=== PATIENT | male | born 1930 | race Caucasian/White ===

== ENCOUNTER 2017-04-22 14:51 | Inpatient (IN) | payer OTHER ==
[~2017-04-22] VITALS: Ht 182.9 cm; Wt 122.9 kg
[~2017-04-22 14:51] MED LIST: METOPROLOL SUCC50 M1 PO; METOPROLOL SUCC50 M2 PO; PRINIVIL 5MG5 MG PO; TERAZOSIN5 MG PO; TOPROL XL 25MG25 MG PO
--- NOTE | 2017-04-22 15:06 | ED GENERAL ADULT ---
History of Present Illness General Chief Complaint: General Adult Stated Complaint: UNRESPONSIVE ? GI BLEED Source: family, old records, EMS Exam Limitations: dementia Vital Signs & Intake/Output Vital Signs & Intake/Output Vital Signs Date Time Temp Pulse Resp B/P B/P Pulse O2 O2 Flow FiO2 Mean Ox Delivery Rate 04/22 1802 100 18 138/85 93 Room Air 04/22 1502 107 16 157/75 95 Room Air Room Air Allergies Coded Allergies: NO KNOWN ALLERGIES (10/21/14) Reconcile Medications Aspirin (Ecotrin*) 81 MG TABLET.DR 1 TAB PO DAILY HEART/BLOOD (Reported) Cyanocobalamin (Vitamin B-12) (Unknown Strength) TABLET (Unknown Dose) PO DAILY SUPPLEMENT (Reported) Folic Acid (Unknown Strength) CAPSULE (Unknown Dose) PO DAILY SUPPLEMENT ( Reported) Lisinopril (Prinivil) (Unknown Strength) TABLET (Unknown Dose) PO DAILY BP ( Reported) Metoprolol Succinate (Unknown Strength) TAB.ER.24H (Unknown Dose) PO DAILY HEART/BP (Reported) Nystatin (Nyamyc) (Unknown Strength) POWDER (Unknown Dose) TOP AD GROIN ( Reported) [RX CREAM] 1 ELISHA TOP DAILY AFTER SHOWER - GROIN (Reported) Tamsulosin HCl (Flomax) 0.4 MG CAP.ER.24H 1 CAP PO DAILY PROSTATE (Reported) Triage Note: BIBA FROM HOME - FOUND ON KITCHEN FLOOR IN PRONE POSITION BY FAMILY. "COFFEE GROUND EMESIS" NOTED UPON ARRIVAL. PALENESS NOTED. MULTIPLE EPISODES OF EMEIS SINCE EMS ARRIVAL. HISTORY OF MELANOMA, PROSTATE CANCER, HTN, Triage Nurses Notes Reviewed? yes HPI: Patient lives at home alone however family lives in the apartment upstairs. Patient was last seen normal at 9:00 this morning. On the check on the patient again he was prone on the kitchen floor. Patient does have a history of frequent falls and then will crawl to an object that he can pull himself up from. Family states that he is more confused than normal since being found on the floor. There appeared to be coffee ground emesis around his head. Patient is unable to provide any history. Past History Travel History Traveled to [place] past 21 day No Medical History Any Pertinent Medical History? 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 No Review of Systems Review of Systems Constitutional: Reports: see HPI. Physical Exam Physical Exam General Appearance: well developed/nourished, awake, moderate distress Head: ecchymosis Eyes: Bilateral: PERRL. Ears, Nose, Throat: normal pharynx, normal ENT inspection, hearing grossly normal Neck: normal inspection, supple Respiratory: normal breath sounds, chest non-tender, no respiratory distress, lungs clear Cardiovascular: regular rate/rhythm, normal peripheral pulses Gastrointestinal: normal bowel sounds, soft, non-tender Rectal: BROWN STOOL, HEME NEGATIVE Back: normal inspection Extremities: ECCHYMOSIS TO BOTH ELBOWS AND KNEES Neurologic/Psych: awake, disoriented x 3 Skin: intact Core Measures ACS in differential dx? Yes CVA/TIA Diagnosis: No Sepsis Present: No Sepsis Focused Exam Completed? No Progress Differential Diagnoses I considered the following diagnoses in my evaluation of the patient: [Traumatic injury, GI bleed, electrolyte abnormality, pneumonia, UTI, rhabdo] Plan of Care: Orders Procedure Date/time Status Add-on Test (ER Only) 04/22 1754 Active BLOOD CULTURE 04/22 1754 Active EKG 04/22 1530 Active LACTIC ACID 04/22 1520 Complete URINALYSIS 04/22 1503 Complete TROPONIN LEVEL 04/22 1503 Complete PARTIAL THROMBOPLASTIN TIME 04/22 1503 Complete PROTHROMBIN TIME 04/22 1503 Complete COMPREHENSIVE METABOLIC PANEL 04/22 1503 Complete CREATINE PHOSPHOKINASE 04/22 1503 Complete CBC WITHOUT DIFFERENTIAL 04/22 1503 Complete Laboratory Tests 04/22/17 1547: Urinalysis LIGHT H, Urine Color YEL, Urine Clarity CLEAR, Urine pH 5.5, Ur Specific [place] >= 1.030, Urine Protein 100 H, Urine Ketones 15 H, Urine Nitrite NEG, Urine Bilirubin NEG, Urine Urobilinogen 0.2, Ur Leukocyte Esterase NEG, Ur Microscopic SEDIMENT EXAMINED, Urine RBC 1-3, Urine WBC 1-3 H, Ur Epithelial Cells FEW, Urine Bacteria FEW H, Hyaline Casts FEW H, Urine Mucus FEW, Urine Hemoglobin MOD H, Urine Glucose NEG 04/22/17 1520: Anion Gap 17 H, Estimated GFR > 60, BUN/Creatinine Ratio 35.0 H, Glucose 144 H, Lactic Acid 4.2 H, Calcium 9.9, Total Bilirubin 2.8 H, AST 40, ALT 45, Alkaline Phosphatase 120, Creatine Kinase 893 H, Troponin I 0.03, Total Protein 6.7, Albumin 4.3, Globulin 2.4, Albumin/Globulin Ratio 1.8, PT 13.6 H, INR 1.24 H, APTT 39 H, CBC w Diff NO MAN DIFF REQ, RBC , MCV ND, MCH ND, MCHC ND, RDW 13.7, MPV 7.6, Gran % 91.8 H, Lymphocytes % 2.0 L, Monocytes % 6.2, Eosinophils % 0, Basophils % 0, Absolute Granulocytes 19.5 H, Absolute Lymphocytes 0.4 L, Absolute Monocytes 1.3 H, Absolute Eosinophils 0, Absolute Basophils 0 Microbiology 04/22 1848 BLOOD: Blood Culture - RECD 04/22 1753 BLOOD: Blood Culture - ORD Diagnostic Imaging: Viewed by Me: CT Scan. Discussed w/RAD: CT Scan. Radiology Impression: PATIENT: CASS GUPTA PRESENT AGE: 87 PATIENT ACCOUNT NO: [id number] : [birth year] LOCATION: [facility] ORDERING PHYSICIAN: Dayron Nunes MD SERVICE DATE: 04/22/17 EXAM TYPE: CAT - CT CERV SPINE WO IV CONTRAST; CT HEAD WO IV CONTRAST EXAMINATION: CT OF THE HEAD WITHOUT CONTRAST CT OF THE CERVICAL SPINE WITHOUT CONTRAST CLINICAL INFORMATION: Found unresponsive. Presumptive diagnosis of intracranial hemorrhage.. COMPARISON: None. TECHNIQUE: Contiguous axial imaging was performed from the skullbase to vertex without intravenous administration of contrast. Coronal reformations of the head were obtained. Contiguous axial imaging was then performed from the skull base down to the thoracic inlet. Coronal and sagittal reformations of the cervical spine were obtained. DLP: 1004.75 mGy-cm. FINDINGS: CT scan of the head: Beam hardening artifact from dental amalgam and bony calvarium limits assessment. There is no evidence of acute intracranial hemorrhage or territorial infarction. No abnormal mass-effect or midline shift is seen. [place] to white matter differentiation is well preserved. No extra-axial fluid collections are identified. The ventricles and sulci are mildly enlarged, consistent with involutional changes. Prominent periventricular deep white matter low-attenuation is seen, consistent with ischemic small vessel disease. Calcification of the carotid siphons is seen. Prominent calcification of the cerebral falx is seen. The osseous structures and soft tissues are normal. Mucous retention cyst is seen in the left maxillary and sphenoid sinus. The mastoid air cells and visualized portions of the paranasal sinuses are well- aerated. CT scan of the cervical spine: There is a mild convex right curvature of the cervical spine. No evidence of acute fracture or dislocation. Craniocervical junction and atlantoaxial articulations are intact. Soft tissues at the level of the foramen magnum are grossly unremarkable. Prevertebral soft tissues are normal in thickness. There is advanced degenerative disc disease at the C3-C4, C4-C5, C5-C6 and C6-C7 levels with associated bulky spur formation, most prominent at the C4-C5 level. Partial fusion along the anterior cervical column is noted from the C5 level down to the upper thoracic spine. Small posterior disc osteophyte complexes are seen at all levels from C3-C4 down to the thoracic spine. Degenerative changes are seen at the atlantoaxial articulation. The included soft tissues of the neck and lung apices are unremarkable. Small calcifications in the thyroid gland are noted. IMPRESSION: CT scan of the head: No acute intracranial pathology. Mild involutional changes and prominent periventricular deep white matter microangiopathic changes seen. Mucous retention cyst in the left maxillary sinus and in the left sphenoid sinus is seen. CT scan of the cervical spine: No evidence of cervical spine fracture. Cervical dextroscoliosis with multilevel advanced degenerative disc disease throughout the mid and lower cervical spine. DICTATED BY: Juanita Ring MD DATE/TIME DICTATED:04/22/171530 LIST OF FIRST JOB IDEAS:[place] DATE/TIME TRANSCRIBED:04/22/171530 CONFIDENTIAL, DO NOT COPY WITHOUT APPROPRIATE AUTHORIZATION. <Electronically signed in Other Vendor System> SIGNED BY: Juanita Ring MD 04/22/17 1551, PATIENT: CASS GUPTA PRESENT AGE: 87 PATIENT ACCOUNT NO: [id number] : [birth year] LOCATION: [facility] ORDERING PHYSICIAN: Dayron Nunes MD SERVICE DATE: 04/22/17 EXAM TYPE: CAT - CT ABD & PELVIS W IV CONTRAST; CT CHEST W IV CONTRAST EXAMINATION CT CHEST, ABDOMEN, AND PELVIS WITH IV CONTRAST CLINICAL INFORMATION: Trauma. COMPARISON: Chest x-ray 07/14/2015. TECHNIQUE: A contrast-enhanced CT of the chest was obtained following the administration of 95 mL of Optiray [address] CHEST: There is no focal consolidation, pleural effusion, or pneumothorax. The thoracic aorta is normal in caliber. The heart is normal in size without evidence of a pericardial effusion. There is no mediastinal, hilar, or axillary adenopathy. Multinodular thyroid gland with coarse calcifications. Nonspecific esophageal wall thickening that can be correlated with endoscopy. No significant soft tissue findings within the chest. 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 CT ABDOMEN/PELVIS: The spleen, adrenal glands, and pancreas are normal. The gallbladder is surgically absent. Probable small cyst within the left lobe of the liver. There are parapelvic cysts bilaterally without hydronephrosis. There is a 5 mm calculus within the upper pole of the right kidney. There is a 4 cm mixed fat and soft tissue-containing lesion along the anterior margin of the right kidney that may reflect an angiomyolipoma or a treated renal lesion for which correlation with the patient's surgical history is advised. Indeterminate 1.4 cm hypodense lesion within the posterior interpolar left kidney can be further assessed with ultrasound. Scattered colonic diverticulosis without acute diverticulitis. The large and small bowel are normal in caliber without evidence of mechanical obstruction. No focal inflammatory changes adjacent to the large or the small bowel. The appendix is normal. There is no free air and there is no intra-abdominal free fluid. No mesenteric or retroperitoneal adenopathy. Aortoiliac atherosclerotic calcification. Prostatomegaly. No pelvic adenopathy. No free fluid within the pelvis. 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 Laminectomy changes at the L3-L5 levels. There is a right total hip arthroplasty. No significant soft tissue abnormality. IMPRESSION: - No evidence of hollow or solid visceral injury within the chest, abdomen, or pelvis. -Nondisplaced lucency courses through the left fifth anterior costochondral cartilage in the right seventh anterior costochondral cartilage suggesting age-indeterminate nondisplaced fracture through these areas. No displaced rib fractures. No additional fractures. 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 - Nonspecific esophageal wall thickening that can be correlated with endoscopy. - There is a 4 cm mixed fat and soft tissue-containing lesion along the anterior margin of the right kidney that may reflect an angiomyolipoma or treated renal malignancy which can be correlated with the clinical history. - Indeterminate 1.4 cm hypodense lesion within the posterior interpolar left kidney can be further assessed with ultrasound. - Multinodular thyroid gland with coarse calcifications. - Prostatomegaly. - Nonobstructing right upper pole renal calculus. DICTATED BY: Norris Collins MD DATE/TIME DICTATED:04/22/171848 LIST OF FIRST JOB IDEAS:[place] DATE/TIME TRANSCRIBED:04/22/171848 CONFIDENTIAL, DO NOT COPY WITHOUT APPROPRIATE AUTHORIZATION. <Electronically signed in Other Vendor System> SIGNED BY: Norris Collins MD 04/22/171910 Initial ED EKG: SINUS ARRYTHMIA, NSSTT CHANGES, NO CHANGE FROM PRIOR Prior EKG: unchanged Rhythm Strip: SINUS ARRYTHMIA Departure Departure Disposition: STILL A PATIENT Condition: Guarded Clinical Impression Primary Impression: Leukocytosis Secondary Impressions: Lactic acidosis, Rhabdomyolysis, Syncope Referrals: Ngoc Nelson APRN (PCP) Departure Forms: Customer Survey General Discharge Information Admission Note Spoke With: Abhijit Craft MD Documentation of Exam: Documentation of any treatments & extenuating circumstances including Concerns Regarding Discharge (functional status, medication knowledge or non-compliance, living conditions, etc.) that warrant an admission rather than observation: [ TELE ADMISSION FOR SERIAL ENZYMES,IV FLUIDS,CARDIOLOGY EVALUATION, ONCOLOGY EVALUATION] Critical Care Note Critical Care Note Critical Care Time: non-applicable
[2017-04-22 15:28] LABS: ABSOLUTE BASOPHIL COUNT 0 /CUMM (0.0-0.2); ABSOLUTE EOSINOPHIL COUNT 0 /CUMM (0.0-0.7); ABSOLUTE GRANULOCYTE CT 19.5 /CUMM (1.4-6.5); ABSOLUTE LYMPH COUNT 0.4 /CUMM (1.2-3.4); ABSOLUTE MONOCYTE COUNT 1.3 /CUMM (0.10-0.60); BASOPHIL % 0 % (0.0-2.0); EOSINOPHIL % 0 % (0-5); MEAN PLATELET VOLUME 7.6 FL (7.4-10.4); PLATELET COUNT 227 /CUMM (130-400); RBC DISTRIBUTION WIDTH 13.7 % (11.5-14.5)
[2017-04-22 15:37] LABS: PT 13.6 SEC (9.4-12.5); PTT 39 SEC (25-37)
--- NOTE | 2017-04-22 15:51 | CT SCAN REPORT ---
EXAMINATION: CT OF THE HEAD WITHOUT CONTRAST CT OF THE CERVICAL SPINE WITHOUT CONTRAST CLINICAL INFORMATION: Found unresponsive. Presumptive diagnosis of intracranial hemorrhage.. COMPARISON: None. TECHNIQUE: Contiguous axial imaging was performed from the skullbase to vertex without intravenous administration of contrast. Coronal reformations of the head were obtained. Contiguous axial imaging was then performed from the skull base down to the thoracic inlet. Coronal and sagittal reformations of the cervical spine were obtained. DLP: 1004.75 mGy-cm. FINDINGS: CT scan of the head: Beam hardening artifact from dental amalgam and bony calvarium limits assessment. There is no evidence of acute intracranial hemorrhage or territorial infarction. No abnormal mass-effect or midline shift is seen. [place] to white matter differentiation is well preserved. No extra-axial fluid collections are identified. The ventricles and sulci are mildly enlarged, consistent with involutional changes. Prominent periventricular deep white matter low-attenuation is seen, consistent with ischemic small vessel disease. Calcification of the carotid siphons is seen. Prominent calcification of the cerebral falx is seen. The osseous structures and soft tissues are normal. Mucous retention cyst is seen in the left maxillary and sphenoid sinus. The mastoid air cells and visualized portions of the paranasal sinuses are well-aerated. CT scan of the cervical spine: There is a mild convex right curvature of the cervical spine. No evidence of acute fracture or dislocation. Craniocervical junction and atlantoaxial articulations are intact. Soft tissues at the level of the foramen magnum are grossly unremarkable. Prevertebral soft tissues are normal in thickness. There is advanced degenerative disc disease at the C3-C4, C4-C5, C5-C6 and C6-C7 levels with associated bulky spur formation, most prominent at the C4-C5 level. Partial fusion along the anterior cervical column is noted from the C5 level down to the upper thoracic spine. Small posterior disc osteophyte complexes are seen at all levels from C3-C4 down to the thoracic spine. Degenerative changes are seen at the atlantoaxial articulation. The included soft tissues of the neck and lung apices are unremarkable. Small calcifications in the thyroid gland are noted. IMPRESSION: CT scan of the head: No acute intracranial pathology. Mild involutional changes and prominent periventricular deep white matter microangiopathic changes seen. Mucous retention cyst in the left maxillary sinus and in the left sphenoid sinus is seen. CT scan of the cervical spine: No evidence of cervical spine fracture. Cervical dextroscoliosis with multilevel advanced degenerative disc disease throughout the mid and lower cervical spine.
[2017-04-22] MEDS ORDERED: FLOMAX0.4 M1 PO (16:05)
[2017-04-22] MEDS ORDERED: PRINIVIL5 M1 PO (16:05)
[2017-04-22] MEDS ORDERED: FOLIC ACID0.8 M1 PO (16:05)
[2017-04-22] MEDS ORDERED: VITAMIN B-121000 MC3 PO (16:06)
[2017-04-22] MEDS ORDERED: NYAMYC15 GM TOP (16:06)
[2017-04-22] MEDS ORDERED: RX CREAM TOP (16:07)
[2017-04-22 16:24] LABS: MEAN CORPUSCULAR HGB ND PG (27.0-31.0); MEAN CORPUSCULAR HGB CONC ND G/DL (33.0-37.0); MEAN CORPUSCULAR VOLUME ND FL (80.0-94.0)
[2017-04-22 16:26] LABS: HEMATOCRIT 40 % (42-52); WHITE BLOOD CELL COUNT 21.3 /CUMM (4.8-10.8)
[2017-04-22 16:28] LABS: GRANULOCYTE % 91.8 % (42.2-75.2)
--- NOTE | 2017-04-22 19:11 | CT SCAN REPORT ---
EXAMINATION CT CHEST, ABDOMEN, AND PELVIS WITH IV CONTRAST CLINICAL INFORMATION: Trauma. COMPARISON: Chest x-ray 07/14/2015. TECHNIQUE: A contrast-enhanced CT of the chest was obtained following the administration of 95 mL of Optiray [address] CHEST: There is no focal consolidation, pleural effusion, or pneumothorax. The thoracic aorta is normal in caliber. The heart is normal in size without evidence of a pericardial effusion. There is no mediastinal, hilar, or axillary adenopathy. Multinodular thyroid gland with coarse calcifications. Nonspecific esophageal wall thickening that can be correlated with endoscopy. No significant soft tissue findings within the chest. 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 CT ABDOMEN/PELVIS: The spleen, adrenal glands, and pancreas are normal. The gallbladder is surgically absent. Probable small cyst within the left lobe of the liver. There are parapelvic cysts bilaterally without hydronephrosis. There is a 5 mm calculus within the upper pole of the right kidney. There is a 4 cm mixed fat and soft tissue-containing lesion along the anterior margin of the right kidney that may reflect an angiomyolipoma or a treated renal lesion for which correlation with the patient's surgical history is advised. Indeterminate 1.4 cm hypodense lesion within the posterior interpolar left kidney can be further assessed with ultrasound. Scattered colonic diverticulosis without acute diverticulitis. The large and small bowel are normal in caliber without evidence of mechanical obstruction. No focal inflammatory changes adjacent to the large or the small bowel. The appendix is normal. There is no free air and there is no intra-abdominal free fluid. No mesenteric or retroperitoneal adenopathy. Aortoiliac atherosclerotic calcification. Prostatomegaly. No pelvic adenopathy. No free fluid within the pelvis. 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 Laminectomy changes at the L3-L5 levels. There is a right total hip arthroplasty. No significant soft tissue abnormality. IMPRESSION: - No evidence of hollow or solid visceral injury within the chest, abdomen, or pelvis. -Nondisplaced lucency courses through the left fifth anterior costochondral cartilage in the right seventh anterior costochondral cartilage suggesting age-indeterminate nondisplaced fracture through these areas. No displaced rib fractures. No additional fractures. 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 - Nonspecific esophageal wall thickening that can be correlated with endoscopy. - There is a 4 cm mixed fat and soft tissue-containing lesion along the anterior margin of the right kidney that may reflect an angiomyolipoma or treated renal malignancy which can be correlated with the clinical history. - Indeterminate 1.4 cm hypodense lesion within the posterior interpolar left kidney can be further assessed with ultrasound. - Multinodular thyroid gland with coarse calcifications. - Prostatomegaly. - Nonobstructing right upper pole renal calculus.
--- NOTE | 2017-04-22 20:28 | History & Physical ---
Abhishek BAUTISTA,[facility] 04/22/172027: General Information and HPI MD Statement: I have seen and personally examined CASS GUPTA and documented this H&P. The patient is a 87 year old M who presented with a patient stated chief complaint of [fall, weakness]. Source of Information: patient History of Present Illness: 87 yo M pmhx of alzheimers, htn, melanoma, nonhodkins lymphoma, prostate cancer s/p resection, SBO, cholecystetomy presenting for weakness after a fall. The history is given by the patients grand daughter who lives downstairs from the patient. She states that she saw the patient at 9:00AM in bed an he was fine. She states that she came back at 2:30 in the afternoon and found him on the ground and his room in a mess. She thinks he fell/rolled out of bed and was too weak to get back up. She thinks he tried to pulled himself up on various objects but was too weak causing his room to be a mess. She states the patient was shaking but she thinks its due to muscle exhaustion. She states he has had 4-5 falls in the past and his last fall was 5 months ago. She also states that he was normal yesteday. She also noticed his eyes have been a little more watery. The patient had coffee ground emesis x2 in the emergency department. According to the daughter, the patient denies any changes in appetite, fevers, headaches, chills, [place], vomiting, cp, SOB, abd pain, changes in elimination, seizures, tongue biting or incontinence. Allergies/Medications Allergies: Coded Allergies: NO KNOWN ALLERGIES (10/21/14) Home Med list Aspirin (Ecotrin*) 81 MG TABLET.DR 1 TAB PO DAILY HEART/BLOOD (Reported) Cyanocobalamin (Vitamin B-12) (Unknown Strength) TABLET (Unknown Dose) PO DAILY SUPPLEMENT (Reported) Folic Acid (Unknown Strength) CAPSULE (Unknown Dose) PO DAILY SUPPLEMENT ( Reported) Lisinopril (Prinivil) (Unknown Strength) TABLET (Unknown Dose) PO DAILY BP ( Reported) Metoprolol Succinate (Unknown Strength) TAB.ER.24H (Unknown Dose) PO DAILY HEART/BP (Reported) Nystatin (Nyamyc) (Unknown Strength) POWDER (Unknown Dose) TOP AD GROIN ( Reported) Tamsulosin HCl (Flomax) 0.4 MG CAP.ER.24H 1 CAP PO DAILY PROSTATE (Reported) Past History Travel History Traveled to [place] past 21 day No Medical History Neurological: Alzheimer's disease EENT: NONE Cardiovascular: hypertension Respiratory: NONE Gastrointestinal: NONE Hepatic: NONE Renal: NONE Musculoskeletal: NONE Psychiatric: NONE Endocrine: NONE Blood Disorders: hemolysis Cancer(s): melanoma, non-hodgkin lymphoma, prostate cancer 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 Cardiovascular: Reports: no symptoms. Respiratory: Reports: no symptoms. GI: Reports: see HPI (hematemsis), vomiting. Genitourinary: Reports: no symptoms. Exam & Diagnostic Data Last 24 Hrs of Vital Signs/I&O Vital Signs Date Time Temp Pulse Resp B/P B/P Pulse O2 O2 Flow FiO2 Mean Ox Delivery Rate 04/22 1802 100 18 138/85 93 Room Air 04/22 1502 107 16 157/75 95 Room Air Room Air Intake & Output 04/22 1600 04/22 0800 04/22 0000 Intake Total Output Total Balance Patient 250 lb Weight Weight Estimated Measurement Method Physical Exam General Appearance Alert, Oriented X3 (aox2), Cooperative, No Acute Distress HEENT PERRLA Cardiovascular Regular Rate, Normal S1, Normal S2 Lungs Clear to Auscultation, Normal Air Movement Abdomen Normal Bowel Sounds, Soft, RLQ tenderness Neurological cn 2-12 grossly intact Extremities 2+ radial pulses Last 24 Hrs of Labs/Moncho: Laboratory Tests 04/23/17 1530: Sodium Pending, Potassium Pending, Chloride Pending, Carbon Dioxide Pending, Anion Gap Pending, BUN Pending, Creatinine Pending, BUN/Creatinine Ratio Pending , Creatine Kinase Pending 04/23/17 0810: Lactic Acid 1.0, Creatine Kinase 4403 H, Troponin I 0.08 04/23/17 0800: Troponin I Cancelled 04/23/17 0430: Lactic Acid 1.4 04/23/17 0430: Anion Gap 9, Estimated GFR > 60, BUN/Creatinine Ratio 32.5 H, Creatine Kinase 5133 H, CBC w Diff MAN DIFF ORDERED, RDW 14.3, MPV 8.2, Segmented Neutrophils 79 H, Lymphocytes 18 L, Monocytes 3, Platelet Estimate ADEQUATE, Normochromic RBCs VERIFIED, Anisocytosis 1+, Urinalysis LIGHT H, Urine Color YEL, Urine Clarity CLEAR, Urine pH 5.5, Ur Specific [place] 1.020, Urine Protein 30 H, Urine Ketones 15 H, Urine Nitrite NEG, Urine Bilirubin NEG@ICTO, Urine Urobilinogen 1.0, Ur Leukocyte Esterase NEG, Ur Microscopic SEDIMENT EXAMINED, Urine RBC >75 H, Urine WBC 3-5 H, Ur Epithelial Cells FEW, Urine Bacteria FEW H, Urine Mucus MOD H, Urine Hemoglobin LARGE H, Urine Glucose NEG 04/23/17 0020: Troponin I 0.08 04/23/17 0020: Lactic Acid 2.0 Microbiology 04/23 0430 URINE ROUT: Urine Culture - RECD 04/23 0040 BLOOD: Blood Culture - RES 04/22 1848 BLOOD: Blood Culture - RES Assessment/Plan Assessment: A: 87 yo M pmhx of alzheimers, htn, melanoma, nonhodkins lymphoma, prostate cancer, SBO, cholecystetomy presenting for weakness after a fall but also found to have coffee ground emesis vomiting P: #GI bleed H/H 13.7/.40 INR 1.24 BUN 35 LA 4.2-> 1.4 Trops .03 Chest/abd CT: No evidence of hollow or solid visceral injury within the chest, abdomen, or pelvis. 1.-Nondisplaced lucency courses through the left fifth anterior costochondral cartilage in the right seventh anterior costochondral cartilage suggesting age- indeterminate nondisplaced fracture through these areas. No displaced rib fractures. No additional fractures. 2. 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 3. Nonspecific esophageal wall thickening that can be correlated with endoscopy. 4. There is a 4 cm mixed fat and soft tissue-containing lesion along the anterior margin of the right kidney that may reflect an angiomyolipoma or treated renal malignancy which can be correlated with the clinical history. - Indeterminate 1.4 cm hypodense lesion within the posterior interpolar left kidney can be further assessed with ultrasound. 5. Multinodular thyroid gland with coarse calcifications. 6. Prostatomegaly. 7. Nonobstructing right upper pole renal calculus. CT scan of the head: No acute intracranial pathology. Mild involutional changes and prominent periventricular deep white matter microangiopathic changes seen. Mucous retention cyst in the left maxillary sinus and in the left sphenoid CT scan of the cervical spine: No evidence of cervical spine fracture. Cervical dextroscoliosis with multilevel advanced degenerative disc disease throughout the mid and lower cervical spine. -gi consult -IV protonix -type and screen -monitor h/h -clear liquid diet -trend trops and ekg x3 -monitor cpk #fall of unclear cause WBC 24.3 -f/u cards consult -trend trops and ekg as above -echo -orthostats #rhabdomyolysis CPK 893 -trend cpk, cont fluids #leukocytosis with unclear source of infeciton -aspiration precautions -unasyn for possible aspiration -pham cx #weakness Possibly due to infection vs GI bleed -OT/PT consult -orthostats #hx of hemolytic anemia Tbili 2.8 Direct bili 0.8 -monitor indirect bili for hemolysis #DVT prophylaxis lovenox #DNR DNI As Ranked By This Provider Problem List: 1. Syncope 2. Rhabdomyolysis 3. Leukocytosis 4. GI bleed Core Measures/Misc (10/30) Acute Coronary Syndrome ACS Diagnosis: No Congestive Heart Failure Congestive Heart Failure Diagnosis No Cerebrovascular Accident CVA/TIA Diagnosis: No VTE (View Protocol) VTE Risk Factors Acute Medical Illness No Mechanical VTE Prophylaxis d/t Other No VTE Pharm Prophylaxis d/t NA PharmProphylax ordered Sepsis (View protocol) Sepsis Present: No Lillie Pike 04/22/17 2300: Resident Review Statement Resident Statement: examined this patient, discussed with fall internship, amended to note Other Findings: 87-year-old male with a past medical history of hypertension, Alzheimer's dementia, prostate cancer, non-Hodgkin's lymphoma, hypertension, AIHA in remission since 2006 was brought in with a chief concern of multiple falls and coffee-ground emesis. He was covered in his vomitus around over his face when he was found, and no recollection of syncopal episode. He was last found to last normal the am of admission, and did not have symptoms such as fever, dyspnea, CP or palpitations prior to the episode. Reported abdominal discomfort that began 1 day ago, no diarrhea. Similar episodes in the last few months, requiring hospital admissions. Reported compliance to his medications. Gets most of his medical care at [facility]. At the time of admission-vitals temperature ( was not recorded in the ED for some reason), Blood pressure 157/75, pulse rate 107, pulse ox 95% on room air. Pertinent lab findings: WBC 21.3 with 91% granulocytes, hemoglobin 13.7, hematocrit 40, platelets 227, sodium 145, potassium 3.7, anion gap 17, BUN 35, serum creatinine 1.0. Lactic acid 4.2, total bilirubin 2.8, AST 40, ALT 45, creatinine kinase at 93, troponin I0.03, INR 1.24, urinalysis showed increased protein. On examination- General Exam: AAOx2, No acute distress, Skin: No rashes, no breakdown HEENT: PERRLA, EOMI Neck: Supple, No JVD No cervical lymphadenopathy CVS: Reg Rate, Normal S1,S2, No MGR Resp: Normal air entry, no ronchi/rales Abdomen: Soft, RLQ tenderness, Normal Bowel Sounds Neuro: Normal Speech, Strength 5/5 b/l x 4 extremities, Sensation intact, CN III -XII NL, Reflexes 2+ Extremities: No cyanosis, pedal edema trace CT scan head and cervical spine: CT scan of the head:no acute intracranial pathology. Mild involutional changes and prominent periventricular deep white matter microangiopathic changes seen. Mucous retention cyst in the left maxillary sinus and in the left sphenoid sinus is seen. CT scan of the cervical spine: No evidence of cervical spine fracture. Cervical dextroscoliosis with multilevel advanced degenerative disc disease throughout the mid and lower cervical spine. CT abdomen and pelvis with IV contrast: - No evidence of hollow or solid visceral injury within the chest, abdomen, or pelvis. -Nondisplaced lucency courses through the left fifth anterior costochondral cartilage in the right seventh anterior costochondral cartilage suggesting age-indeterminate nondisplaced fracture through these areas. No displaced rib fractures. No additional fractures. 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 - Nonspecific esophageal wall thickening that can be correlated with endoscopy. - There is a 4 cm mixed fat and soft tissue-containing lesion along the anterior margin of the right kidney that may reflect an angiomyolipoma or treated renal malignancy which can be correlated with the clinical history. - Indeterminate 1.4 cm hypodense lesion within the posterior interpolar left kidney can be further assessed with ultrasound. - Multinodular thyroid gland with coarse calcifications. - Prostatomegaly. - Nonobstructing right upper pole renal calculus. Etiology likely is due to dehydration, GI bleed, possible aspiration pneumonia/ pneumonitis that must have led to his syncopal episode. He has limited BUN/ creatinine ratio and coffee-ground emesis makes his belief that he may have had GI bleed. Did not give any history of recent NSAID use. In regards to aspiration pneumonitis, although CAT scan did not reveal any consolidation, he should be covered with antibiotics and the culture results. Problem list: #1 acute blood loss secondary to GI bleed #2 leukocytosis, source 2+ SIRS2 with unclear source of infection #3 history of non-Hodgkin's lymphoma. 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 Blood cultures, lower respirator cultures, urine culture Check indirect bili, since this patient has history of [place] hemolytic anemia Cardiology consult Echocardiogram Orthostatic vitals Serial EKGs, electrolytes Check Urine protein creatinine ratio, if proteinuria persists. Continue albuterol, ipratropium. Housekeeping: #1 DVT prophylaxis-alps only #2 lines-peripheral #3 code-DNR/DNI #4 medical reconciliation-complete. #5 medical records-please obtain from [place]. LuanaEladiouyen 04/23/17 0530: Attending MD Review Statement Attending Statement Attending MD Statement: examined this patient, discuss w/resident/PA/ONLINE ACTIVIST, agreed w/resident/PA/ONLINE ACTIVIST, reviewed EMR data (avail), reviewed images, amended to note Attending Assessment/Plan: CC: Found on the floor PMH: Dementia, HTN, CA prostate S/P radiation, non-Hodgkin's lymphoma, S/P cholecystectomy, cold agglutinin autoimmune hemolytic anemia History is obtain from patient's granddaughter. Patient does not provide any detailed because of dementia. Granddaughter lives on the second floor in the same house. She found patient in prone position on the kitchen floor. She also noticed coffee ground vomiting around him. Patient has frequent falls, previous one 5 months back. He was last seen normal at around 9 AM. Exact details of falls unavailable, given the fall was unwitnessed and patient has dementia. Currently patient complains of some soreness on his abdomen, he also mentioned that he vomited several times today. No diarrhea, no chest pain. Patient's granddaughter is not aware of his treatment about prostate cancer, non -Hodgkin's lymphoma. Vitals: Temperature not done in ER, 97.6 once on medical floor, pulse 107, RR 16 , blood pressure 157/75, saturating 95% on room air. On exam: A NOT ORIENTED, cooperative, no acute distress, neck supple, JVD normal , no lymphadenopathy, mucosa moist, no focal neurological deficit, no dependent edema, no obvious skin rashes or inflammation, mild tenderness to palpate on left upper quadrant, chest, small bruise on left upper quadrant, CVS: S1-S2, RRR. RS: Clear to auscultate bilaterally. Abdomen: Soft, NT, ND, bowel sounds present. CT head and cervical spine: No acute intracranial pathology. Mild involutional changes and prominent periventricular deep white matter microangiopathic changes seen. Mucous retention cyst in the left maxillary sinus and in the left sphenoid sinus is seen. No evidence of cervical spine fracture. Cervical dextroscoliosis with multilevel advanced degenerative disc disease throughout the mid and lower cervical spine. CT abdomen, pelvis and chest with IV contrast: - No evidence of hollow or solid visceral injury within the chest, abdomen, or pelvis. - Nondisplaced lucency courses through the left fifth anterior costochondral cartilage in the right seventh anterior costochondral cartilage suggesting age-indeterminate nondisplaced fracture through these areas. No displaced rib fractures. No additional fractures. 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 - Nonspecific esophageal wall thickening that can be correlated with endoscopy. - There is a 4 cm mixed fat and soft tissue-containing lesion along the anterior margin of the right kidney that may reflect an angiomyolipoma or treated renal malignancy which can be correlated with the clinical history. - Indeterminate 1.4 cm hypodense lesion within the posterior interpolar left kidney can be further assessed with ultrasound. - Multinodular thyroid gland with coarse calcifications. - Prostatomegaly. - Nonobstructing right upper pole renal calculus. Assessment and plan 87-year-old male with extensive past medical history was brought in ER through EMS after found on the floor for unknown duration of time. Patient had unwitnessed fall at home. Patient does not recall the episode as he has dementia. Patient was last seen normal was 9 AM, around 2 PM then his granddaughter went to check on him he was found on floor and there was some coffee-ground emesis around him. Complete examination is unremarkable except significant dementia. Patient has high WBC count with left shift, mildly elevated BUN, lactic acidosis, elevated bilirubin (2.8 and elevated CPK (893). UA positive for ketones and hemoglobin. Multiple imaging as mentioned above shows possibility of fracture at left fifth anterior costochondral cartilage up to seventh anterior costochondral cartilage, it's unclear if this is new versus old because of his previous falls. Exact mechanism of fall is also unclear, it could be secondary to dehydration, orthostatics, unstable gait, accidental but syncope should be ruled out. 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 Family is not aware of the treatment or staging for prostate cancer or non-Hodgkin's lymphoma. Patient follows up at [place]. Mild elevation in bilirubin is chronic, secondary to probable hemolysis. Elevated CPK would be secondary to fall and lying on the floor for several hours. Patient has elevated WBC count, lactic acidosis, he could have aspirated because of fall but CT chest does not mention any infiltrates. We will start him on antibiotic treatment for now, may discontinue if WBC, lactic acid improving andno fever spike. + Fall : Unclear etiology + Possible left costochondral fracture + coffee-ground emesis : ? 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 - Cardiology consult - DVT prophylaxis - Adequate pain control - TRC nebs - Swallow evaluation - Adequate pain control - Continue IV Unasyn for now - Blood cultures urine cultures - Trend lactate and CPK - IV Protonix - GI consult in a.m. - Continue clear liquids - OT PT evaluation - Type and screen - DNR/DNI - By the time, I could see the patient, patient's family had left I could not discuss goals of care regarding metastatic cancer, treatment plan.
[2017-04-22 22:00] VITALS: BP 144/80
[2017-04-23 05:32] LABS: MEAN PLATELET VOLUME 8.2 FL (7.4-10.4); PLATELET COUNT 219 /CUMM (130-400); WHITE BLOOD CELL COUNT 24.3 /CUMM (4.8-10.8)
--- NOTE | 2017-04-23 05:32 | Admission Certification ---
Admission Certification Certification Statement - As attending physician, I certify that at the time of - admission, based on clinical presentation, severity of - symptoms, need for further diagnostic testing and - therapeutic interventions, and risk of adverse outcomes - without in-hospital treatment, in my clinical assessment, - this patient requires an acute hospital stay for a minimum - of two nights or longer. I have also considered psychsocial - factors such as support system, advanced age, financial - issues, cognitive issues, and failed out-patient treatments, - past re-admission history, safety of patient, and lack of - compliance as applicable. Specific rationale supporting this admission is: Unwitnessed fall
[2017-04-23 06:49] VITALS: BP 144/72
[2017-04-23 07:25] LABS: RBC DISTRIBUTION WIDTH 14.3 % (11.5-14.5)
--- NOTE | 2017-04-23 13:17 | Cons- Cardiology ---
General Information and HPI Consulting Request Date of Consult: 04/23/17 Requested By: Abhijit Craft MD History of Present Illness: This 87 year old male carries a history of hypertension, melanoma and alzheimer' s dementia. He receives all his [facility] care at the [facility] and is taken care of by his grandaughter at home. Over the past year he has had about three falls. Yesterday, this patient was found on the floor of the kitchen by his grandaughter. She thinks he fell out of bed and dragged himself to the kitchen where he tried to pull himself up, but with little success. He was reportedly shaking when found. the patient has no true recollection of the event but states that he was sleep-walking and got stuck. He denies any chest pain, pressure, tightness, shortness of breath, lightheadedness or palpitations. He did vomit at home and in the ER. He otherwise denies fever or chills but does have a sore throat. On telemetry some NSVT is noted. Potassium and magnesium are low and he has an increased WBC count. An echocardiogram in 2014 showed a normal EF of 65%. It should be noted that this patient was found to be tachycardic about three years ago and was started on beta blockers at that time, but the exact nature of the tachycardia was not documented. Allergies/Medications Allergies: Coded Allergies: NO KNOWN ALLERGIES (10/21/14) Home Med List: Aspirin (Ecotrin*) 81 MG TABLET.DR 1 TAB PO DAILY HEART/BLOOD (Reported) Cyanocobalamin (Vitamin B-12) (Unknown Strength) TABLET (Unknown Dose) PO DAILY SUPPLEMENT (Reported) Folic Acid (Unknown Strength) CAPSULE (Unknown Dose) PO DAILY SUPPLEMENT ( Reported) Lisinopril (Prinivil) (Unknown Strength) TABLET (Unknown Dose) PO DAILY BP ( Reported) Metoprolol Succinate (Unknown Strength) TAB.ER.24H (Unknown Dose) PO DAILY HEART/BP (Reported) Nystatin (Nyamyc) (Unknown Strength) POWDER (Unknown Dose) TOP AD GROIN ( Reported) Tamsulosin HCl (Flomax) 0.4 MG CAP.ER.24H 1 CAP PO DAILY PROSTATE (Reported) Review of Systems Review of Systems: A review of systems is not obtainable. 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 Home Services at Home: Home Health Aide Smoking Status: Former Smoker ETOH Use: denies use Illicit Drug Use: denies illicit drug use Exam & Diagnostic Data Vital Signs and I&O Vital Signs Date Time Temp Pulse Resp B/P B/P Pulse O2 O2 Flow FiO2 Mean Ox Delivery Rate 04/23 0853 77 144/72 04/23 0800 Room Air 04/23 0649 97.4 77 20 144/72 96 Room Air 04/22 2211 Room Air 04/22 2200 97.6 66 20 144/80 94 Nasal Cannula 04/22 2141 88 16 141/86 99 Room Air 04/22 2124 94 18 164/86 96 Room Air 04/22 1802 100 18 138/85 93 Room Air 04/22 1502 107 16 157/75 95 Room Air Room Air Intake & Output 04/23 1600 04/23 0800 04/23 0000 04/22 1600 04/22 0800 04/22 0000 Intake Total 120 Output Total 325 Balance -205 Intake, Oral 120 Output, Urine 325 Patient 261 lb 250 lb Weight Weight Bed scale Estimated Measurement Method Physical Exam: General: WD/overweight male in NAD; awake and slow to respond with very poor memory HEENT: NC/AT, PERRL, EOMI Skin: copious skin lesions Neck: no JVD, no carotid bruit Heart: RRR with ectopy and 2/6 systolic murmur Lungs: clear bilaterally Abdomen: soft, NT, +ve bowel sounds Extremities: no edema, decreased range of motion of RUE Assessment/Plan Assessment/Plan * This patient appears deeply demented. He had a fall which could have been mechanical due to tripping or due to generalized weakness but a cardiac dysrhythmia cannot be excluded, especially in the setting of NSVT on telemetry. Giorgio has ruled out for an ME by cardiac enzymes. An echocardiogram should be obtained to assess his EF. Check a TSH and free T4. Continue to monitor on telemetry. Restart Metoprolol at 25mg BID. * Mild rhabdomyolysis from lying on the ground with normal renal function. Consult Acknowledgment - Thank you for your consult request.
[2017-04-23 15:15] VITALS: BP 136/70
--- NOTE | 2017-04-23 15:42 | PN- Att Addend ---
Attending MD Review Statement Attending Statement Attending MD Statement: examined this patient, discuss w/resident/PA/MOLDING TECHNICIAN, agreed w/resident/PA/MOLDING TECHNICIAN, reviewed EMR data (avail), discussed w/nursing Attending Assessment/Plan: 87 year old M with pmh of alzheimers dementia, htn, melanoma, nonhodkins lymphoma, prostate cancer , SBO, cholecystetomy presenting for weakness after a fall and coffee ground emeisis. ROS- pt denies any headache, chest pain, sob or fevers. Gives h/o feeling heart burn and sour taste in mouth. Physical exam- elderly frail male in NAD, Pt is alert and able to give some history. no murmur appreciated. Laboratory Tests 04/23/17 1530: Sodium Pending, Potassium Pending, Chloride Pending, Carbon Dioxide Pending, Anion Gap Pending, BUN Pending, Creatinine Pending, BUN/Creatinine Ratio Pending , Creatine Kinase Pending 04/23/17 0810: Lactic Acid 1.0, Creatine Kinase 4403 H, Troponin I 0.08 04/23/17 0800: Troponin I Cancelled 04/23/17 0430: Lactic Acid 1.4 04/23/17 0430: Anion Gap 9, Estimated GFR > 60, BUN/Creatinine Ratio 32.5 H, Creatine Kinase 5133 H, CBC w Diff MAN DIFF ORDERED, RDW 14.3, MPV 8.2, Segmented Neutrophils 79 H, Lymphocytes 18 L, Monocytes 3, Platelet Estimate ADEQUATE, Normochromic RBCs VERIFIED, Anisocytosis 1+, Urinalysis LIGHT H, Urine Color YEL, Urine Clarity CLEAR, Urine pH 5.5, Ur Specific [place] 1.020, Urine Protein 30 H, Urine Ketones 15 H, Urine Nitrite NEG, Urine Bilirubin NEG@ICTO, Urine Urobilinogen 1.0, Ur Leukocyte Esterase NEG, Ur Microscopic SEDIMENT EXAMINED, Urine RBC >75 H, Urine WBC 3-5 H, Ur Epithelial Cells FEW, Urine Bacteria FEW H, Urine Mucus MOD H, Urine Hemoglobin LARGE H, Urine Glucose NEG 04/23/17 0020: Troponin I 0.08 04/23/17 0020: Lactic Acid 2.0 04/22/17 1547: Urinalysis LIGHT H, Urine Color YEL, Urine Clarity CLEAR, Urine pH 5.5, Ur Specific [place] >= 1.030, Urine Protein 100 H, Urine Ketones 15 H, Urine Nitrite NEG, Urine Bilirubin NEG, Urine Urobilinogen 0.2, Ur Leukocyte Esterase NEG, Ur Microscopic SEDIMENT EXAMINED, Urine RBC 1-3, Urine WBC 1-3 H, Ur Epithelial Cells FEW, Urine Bacteria FEW H, Hyaline Casts FEW H, Urine Mucus FEW, Urine Hemoglobin MOD H, Urine Glucose NEG Vital Signs Date Time Temp Pulse Resp B/P B/P Pulse O2 O2 Flow FiO2 Mean Ox Delivery Rate 04/23 1414 Room Air 04/23 0853 77 144/72 04/23 0800 Room Air 04/23 0649 97.4 77 20 144/72 96 Room Air 04/22 2211 Room Air 04/22 2200 97.6 66 20 144/80 94 Nasal Cannula 04/22 2141 88 16 141/86 99 Room Air 04/22 2124 94 18 164/86 96 Room Air 04/22 1802 100 18 138/85 93 Room Air Asp pneumonia- cont on unasyn. f/u on wbc , worse today, recheck in am. Lactic acidosis- resolved now. Coffee ground emesis/ GI bleed- Will f/u on GI recommendations. started on PPI. F/u on H/h. DVT proph- put on ALPS.
--- NOTE | 2017-04-23 15:42 | Cons- Gastroenterology ---
General Information and HPI Consulting Request Date of Consult: 04/23/17 (MD [facility]/GASTROENTEROLOGY) Requested By: Abhijit Craft MD Reason for Consult: GI bleed Source of Information: patient, old records Exam Limitations: dementia History of Present Illness: The patient cannot answer reliably. He does not recall any history of previous GI/liver disease/illness, and specifically no previous GI bleed (he was admitted for diverticular bleed in 2014). Apparently was found at home by family, with "coffee-ground" emesis around him. He vomited several times in the emergency room, but nursing notes do not describe the emesis. He claims that since admission he's had a "sour stomach" and vomiting. He is also had throat pain with/after swallowing which he attributes to the vomiting. He is unaware of hematemesis, melena, hematochezia. He denies abdominal pain, heartburn, or antecedent diarrhea/constipation. x Allergies/Medications Allergies: Coded Allergies: NO KNOWN ALLERGIES (10/21/14) Home Med List: Aspirin (Ecotrin*) 81 MG TABLET.DR 1 TAB PO DAILY HEART/BLOOD (Reported) Cyanocobalamin (Vitamin B-12) (Unknown Strength) TABLET (Unknown Dose) PO DAILY SUPPLEMENT (Reported) Folic Acid (Unknown Strength) CAPSULE (Unknown Dose) PO DAILY SUPPLEMENT ( Reported) Lisinopril (Prinivil) (Unknown Strength) TABLET (Unknown Dose) PO DAILY BP ( Reported) Metoprolol Succinate (Unknown Strength) TAB.ER.24H (Unknown Dose) PO DAILY HEART/BP (Reported) Nystatin (Nyamyc) (Unknown Strength) POWDER (Unknown Dose) TOP AD GROIN ( Reported) Tamsulosin HCl (Flomax) 0.4 MG CAP.ER.24H 1 CAP PO DAILY PROSTATE (Reported) Current Medications: Current Medications Sig/Katrina Start time Last Medication Dose Route Stop Time Status Admin Albuterol Sulfate 3 ML Q6P PRN 04/23 0800 AC INH Ampicillin Sodium/ 1,500 MG Q6 04/22 2359 AC 04/23 Sulbactam Sodium IV 1134 Sodium Chloride 100 ML Enoxaparin Sodium 40 MG DAILY 04/23 1045 AC 04/23 SC 1134 Ipratropium [place] 2.5 ML Q6-PRN PRN 04/23 0800 AC INH Pantoprazole Sodium 40 MG DAILY 04/23 1000 CAN IV Pantoprazole Sodium 40 MG DAILY 04/23 0200 AC 04/23 IV 0329 Ramelteon 8 MG ONCE ONE 04/23 0330 DC 04/23 PO 04/23 0331 0329 Sodium Chloride 1,000 ML CONTINOUS INFUSION 04/22 2245 AC 04/23 IV 04/24 0123 0332 Sodium Chloride 1,000 ML BOLUS ONE 04/22 1800 DC 04/22 IV 04/22 1859 2200 Sodium Chloride 1,000 ML BOLUS ONE 04/22 1800 DC 04/22 IV 04/22 1859 1857 Sodium Chloride 1,000 ML BOLUS ONE 04/22 1530 DC 04/22 IV 04/22 1629 1558 Tamsulosin HCl 0.4 MG DAILY 04/23 1000 AC 04/23 PO 0853 Past History Travel History Traveled to [place] past 21 day No Medical History Blood Transfusion Hx: Yes Neurological: Alzheimer's disease EENT: NONE Cardiovascular: hypertension Respiratory: NONE Gastrointestinal: NONE Hepatic: NONE Renal: NONE Musculoskeletal: NONE Psychiatric: NONE Endocrine: NONE Blood Disorders: hemolysis Cancer(s): melanoma, non-hodgkin lymphoma, prostate cancer [employer] [employer]/Reproductive: NONE Surgical History Surgical History: cholecystectomy, SMALL BOWEL RESECTION SECONDARY TO OBSTRUCTION Psychosocial History Where Do You Live? Home Services at Home: Home Health Aide Smoking Status: Former Smoker ETOH Use: denies use Illicit Drug Use: denies illicit drug use Employment History Employment: Retired Review of Systems Review of Systems: Unobtainable given dementia Exam & Diagnostic Data Vital Signs and I&O Vital Signs Date Time Temp Pulse Resp B/P B/P Pulse O2 O2 Flow FiO2 Mean Ox Delivery Rate 04/23 1414 Room Air 04/23 0853 77 144/72 04/23 0800 Room Air 04/23 0649 97.4 77 20 144/72 96 Room Air 04/22 2211 Room Air 04/22 2200 97.6 66 20 144/80 94 Nasal Cannula 04/22 2141 88 16 141/86 99 Room Air 04/22 2124 94 18 164/86 96 Room Air 04/22 1802 100 18 138/85 93 Room Air Intake & Output 04/23 1600 04/23 0400 04/22 1600 04/22 0400 04/21 1600 04/21 0400 Intake Total 1642 Output Total 425 Balance 1217 Intake, IV 820 Intake, Oral 822 Number 1 Bowel Movements Output, Urine 425 Patient 261 lb 250 lb Weight Weight Bed scale Estimated Measurement Method Physical Exam: Elderly white male, no apparent distress. Alert, poor memory. Multiple seborrheic keratoses on skin. No jaundice, rash, stigmata of liver disease. No adenopathy. Sclera anicteric. No oropharyngeal lesions. Neck supple without thyromegaly or mass. Heart regular rhythm with 2/6 systolic murmur. Lungs clear. Abdomen soft, nondistended, normal bowel sounds, no tenderness/mass/ organomegaly. No edema. Pulses intact distally. Results Pertinent Lab Results: Laboratory Tests 04/23 04/23 04/23 0810 0800 0430 Chemistry Lactic Acid (0.7 - 2.1 mmol/L) 1.0 1.4 Creatine Kinase (55 - 170 U/L) 4403 H Troponin I (<0.11 ng/ml) 0.08 Cancelled 04/23 04/23 04/23 0430 0020 0020 Chemistry Sodium (137 - 145 mmol/L) 145 Potassium (3.5 - 5.1 mmol/L) 3.4 L Chloride (98 - 107 mmol/L) 111 H Carbon Dioxide (22 - 30 mmol/L) 24 Anion Gap (5 - 16) 9 BUN (9 - 20 mg/dL) 26 H Creatinine (0.7 - 1.2 mg/dL) 0.8 Estimated GFR (>60 ml/min) > 60 BUN/Creatinine Ratio (7 - 25 %) 32.5 H Lactic Acid (0.7 - 2.1 mmol/L) 2.0 Creatine Kinase (55 - 170 U/L) 5133 H Troponin I (<0.11 ng/ml) 0.08 Hematology CBC w Diff MAN DIFF ORDERED WBC (4.8 - 10.8 /CUMM) 24.3 H Hgb (14.0 - 18.0 G/DL) 12.0 L Hct (42 - 52 %) 36.0 L RDW (11.5 - 14.5 %) 14.3 Plt Count (130 - 400 /CUMM) 219 MPV (7.4 - 10.4 FL) 8.2 Segmented Neutrophils (42.2 - 75.2 %) 79 H Lymphocytes (20.5 - 51.1 %) 18 L Monocytes (1.7 - 9.3 %) 3 Platelet Estimate (ADEQUATE) ADEQUATE Normochromic RBCs VERIFIED Anisocytosis 1+ Urines Urinalysis LIGHT H Urine Color (YEL,AMB,STR) YEL Urine Clarity (CLEAR) CLEAR Urine pH (5.0 - 8.0) 5.5 Ur Specific [place] (1.001 - 1.035) 1.020 Urine Protein (NEG,<30 MG/DL) 30 H Urine Ketones (NEG) 15 H Urine Nitrite (NEG) NEG Urine Bilirubin (NEG) NEG@ICTO Urine Urobilinogen (0.1 - 1.0 EU/dl) 1.0 Ur Leukocyte Esterase (NEG) NEG Ur Microscopic SEDIMENT EXAMINED Urine RBC (0 - 5 /HPF) >75 H Urine WBC (0 - 2 /HPF) 3-5 H Ur Epithelial Cells (NONE,FEW) FEW Urine Bacteria (NEG/NONE) FEW H Urine Mucus (FEW,NONE) MOD H Urine Hemoglobin (NEG) LARGE H Urine Glucose (N MG/DL) NEG 04/22 04/22 1547 1520 Chemistry Sodium (137 - 145 mmol/L) 145 Potassium (3.5 - 5.1 mmol/L) 3.7 Chloride (98 - 107 mmol/L) 103 Carbon Dioxide (22 - 30 mmol/L) 24 Anion Gap (5 - 16) 17 H BUN (9 - 20 mg/dL) 35 H Creatinine (0.7 - 1.2 mg/dL) 1.0 Estimated GFR (>60 ml/min) > 60 BUN/Creatinine Ratio (7 - 25 %) 35.0 H Glucose (65 - 99 mg/dL) 144 H Lactic Acid (0.7 - 2.1 mmol/L) 4.2 H Calcium (8.4 - 10.2 mg/dL) 9.9 Total Bilirubin (0.2 - 1.3 mg/dL) 2.8 H Direct Bilirubin (< 0.4 mg/dL) 0.8 H AST (17 - 59 U/L) 40 ALT (21 - 72 U/L) 45 Alkaline Phosphatase (< 127 U/L) 120 Creatine Kinase (55 - 170 U/L) 893 H Troponin I (<0.11 ng/ml) 0.03 Total Protein (6.3 - 8.2 g/dL) 6.7 Albumin (3.5 - 5.0 g/dL) 4.3 Globulin (1.9 - 4.2 gm/dL) 2.4 Albumin/Globulin Ratio (1.1 - 2.2 %) 1.8 Coagulation PT (9.4 - 12.5 SEC) 13.6 H INR (0.90 - 1.17) 1.24 H APTT (25 - 37 SEC) 39 H Hematology CBC w Diff NO MAN DIFF REQ WBC (4.8 - 10.8 /CUMM) 21.3 H RBC (4.70 - 6.10 /CUMM) Hgb (14.0 - 18.0 G/DL) 13.7 L Hct (42 - 52 %) 40 L MCV (80.0 - 94.0 FL) ND MCH (27.0 - 31.0 PG) ND MCHC (33.0 - 37.0 G/DL) ND RDW (11.5 - 14.5 %) 13.7 Plt Count (130 - 400 /CUMM) 227 MPV (7.4 - 10.4 FL) 7.6 Gran % (42.2 - 75.2 %) 91.8 H Lymphocytes % (20.5 - 51.1 %) 2.0 L Monocytes % (1.7 - 9.3 %) 6.2 Eosinophils % (0 - 5 %) 0 Basophils % (0.0 - 2.0 %) 0 Absolute Granulocytes (1.4 - 6.5 /CUMM) 19.5 H Absolute Lymphocytes (1.2 - 3.4 /CUMM) 0.4 L Absolute Monocytes (0.10 - 0.60 /CUMM) 1.3 H Absolute Eosinophils (0.0 - 0.7 /CUMM) 0 Absolute Basophils (0.0 - 0.2 /CUMM) 0 Urines Urinalysis LIGHT H Urine Color (YEL,AMB,STR) YEL Urine Clarity (CLEAR) CLEAR Urine pH (5.0 - 8.0) 5.5 Ur Specific [place] (1.001 - 1.035) >= 1.030 Urine Protein (NEG,<30 MG/DL) 100 H Urine Ketones (NEG) 15 H Urine Nitrite (NEG) NEG Urine Bilirubin (NEG) NEG Urine Urobilinogen (0.1 - 1.0 EU/dl) 0.2 Ur Leukocyte Esterase (NEG) NEG Ur Microscopic SEDIMENT EXAMINED Urine RBC (0 - 5 /HPF) 1-3 Urine WBC (0 - 2 /HPF) 1-3 H Ur Epithelial Cells (NONE,FEW) FEW Urine Bacteria (NEG/NONE) FEW H Hyaline Casts (0/LPF) FEW H Urine Mucus (FEW,NONE) FEW Urine Hemoglobin (NEG) MOD H Urine Glucose (N MG/DL) NEG Imaging/Other Studies: CT scan of chest/abdomen/pelvis: IMPRESSION: - No evidence of hollow or solid visceral injury within the chest, abdomen, or pelvis. -Nondisplaced lucency courses through the left fifth anterior costochondral cartilage in the right seventh anterior costochondral cartilage suggesting age-indeterminate nondisplaced fracture through these areas. No displaced rib fractures. No additional fractures. 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 - Nonspecific esophageal wall thickening that can be correlated with endoscopy. - There is a 4 cm mixed fat and soft tissue-containing lesion along the anterior margin of the right kidney that may reflect an angiomyolipoma or treated renal malignancy which can be correlated with the clinical history. - Indeterminate 1.4 cm hypodense lesion within the posterior interpolar left kidney can be further assessed with ultrasound. - Multinodular thyroid gland with coarse calcifications. - Prostatomegaly. - Nonobstructing right upper pole renal calculus. Assessment/Plan Assessment/Recommendations: Elderly patient with dementia, with history of non-Hodgkin's lymphoma, melanoma, prostate cancer and hemolytic anemia. The patient presents after a presumed fall, with coffee ground emesis, but Hemoccult negative stool in the emergency room, and no drop in hematocrit overnight. 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 There is hyperbilirubinemia, which is mostly indirect. At the time of consultation, the patient was eating a solid diet without complaint. Assessment 1. Hematemesis, minor GI bleed 2. Indirect hyperbilirubinemia 3. Odynophagia, question of abnormal esophagus on CT scan Recommendations * Follow-up total and direct bilirubin, CBC, LDH * PPI * Evaluate leukocytosis (infectious versus hematologic process; [facility]) * Evaluation of osteoblastic bone lesions * Given the minor nature of the bleed, defer EGD until after the above and after discussion with family; continue regular diet for now Copies To: Ngoc Nelson APRN; Helena BAUTISTA,Codey Wilkes Consult Acknowledgment - Thank you for your consult request.
[2017-04-23 21:10] VITALS: BP 140/70
--- NOTE | 2017-04-24 07:29 | PN- Housestaff ---
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 Objective Last 24 Hrs of Vital Signs/I&O Vital Signs Date Time Temp Pulse Resp B/P B/P Pulse O2 O2 Flow FiO2 Mean Ox Delivery Rate 04/24 0730 98.4 62 18 128/74 98 Room Air 04/24 0000 Room Air Room Air 04/23 2300 98.2 64 18 97 Room Air 04/23 2112 87 140/70 04/23 2110 87 140/70 04/23 1515 97.1 75 20 136/70 94 Room Air 04/23 1414 Room Air 04/23 0853 77 144/72 Intake & Output 04/24 1600 04/24 0800 04/24 0000 Intake Total 900 1380 Output Total 300 400 Balance 600 980 Intake, IV 800 900 Intake, Oral 100 480 Output, Urine 300 400 Patient 269 lb Weight Physical Exam General Appearance: Lethargic Cardiovascular: Regular Rate, Normal S1, Normal S2 Lungs: R side wheezing Abdomen: Normal Bowel Sounds, Soft, No Tenderness Extremities: L knee abrasion Current Medications: Current Medications Sig/Katrina Start time Last Medication Dose Route Stop Time Status Admin Albuterol Sulfate 3 ML Q6P PRN 04/23 08 AC INH Ampicillin Sodium/ 1,500 MG Q6 04/22 2359 AC 04/24 Sulbactam Sodium IV 0513 Sodium Chloride 100 ML Enoxaparin Sodium 40 MG DAILY 04/23 1045 DC 04/23 SC 1134 Ipratropium [place] 2.5 ML Q6-PRN PRN 04/23 08 AC INH Metoprolol Tartrate 25 MG BID 04/23 2200 AC 04/23 PO 2112 Pantoprazole Sodium 40 MG DAILY 04/23 0200 AC 04/23 IV 0329 Ramelteon 8 MG ONCE ONE 04/23 2330 DC 04/23 PO 04/23 2331 2334 Sodium Chloride 1,000 ML CONTINOUS INFUSION 04/22 2245 DC 04/23 IV 04/24 0123 1915 Tamsulosin HCl 0.4 MG DAILY 04/23 1000 AC 04/23 PO 0853 Last 24 Hrs of Lab/Moncho Results Last 24 Hrs of Labs/Mics: Laboratory Tests 04/24/17 0618: Sodium Pending, Potassium Pending, Chloride Pending, Carbon Dioxide Pending, Anion Gap Pending, BUN Pending, Creatinine Pending, BUN/Creatinine Ratio Pending , Total Bilirubin Pending, Direct Bilirubin Pending, Lactate Dehydrogenase Pending, Creatine Kinase Pending, CBC w Diff Pending, WBC Pending, RBC Pending, Hgb Pending, Hct Pending, MCV Pending, MCH Pending, MCHC Pending, RDW Pending, Plt Count Pending, MPV Pending 04/23/17 1530: Anion Gap 11, Estimated GFR > 60, BUN/Creatinine Ratio 28.9 H, Creatine Kinase 2872 H, TSH 0.928, Free T4 1.20 04/23/17 0810: Lactic Acid 1.0, Creatine Kinase 4403 H, Troponin I 0.08 Assessment/Plan Assessment: 87 yo M pmhx of alzheimers, htn, melanoma, nonhodkins lymphoma, prostate cancer, SBO, cholecystetomy presenting for weakness after a fall but also found to have coffee ground emesis vomiting Problem list: #1 acute blood loss secondary to GI bleed #2 history of CLL with leukocytosis on admission #3 history of non-Hodgkin's lymphoma. #4 rhabdomyolysis #5 aspiration pneumonitis #6 history of COPD #7 multiple lesions on kidney likely metastatic #8 syncope #9 proteinuria #10 lactic acidosis #[address] showedNondisplaced lucency courses through the left fifth anterior costochondral cartilage in the right seventh anterior costochondral cartilage suggesting age-indeterminate nondisplaced fracture through these areas. Indeterminate 1.4 cm hypodense lesion within the posterior interpolar left kidney. Nonspecific esophageal wall thickening Plan: CPK trending down Records request fax[facility] 04[facility] As per Hem/Onc patient saw Dr. Tremaine Leon at [place] for CLL but leukocytosis all neutrophils that most likely reactive Obtain renal US to evaluate for malignancy PSA 63.60 Patient may require STR upon discharge Problem List: 1. GI bleed 2. Rhabdomyolysis 3. Lactic acidosis Pain Ratin Pain Location: NA Pain Goal: Remain pain free Pain Plan: NA Tomorrow's Labs & Rationales: CBC for anemia CPK for rhabdo
[2017-04-24 07:30] VITALS: BP 128/74
[2017-04-24 08:24] LABS: ABSOLUTE BASOPHIL COUNT 0 /CUMM (0.0-0.2); ABSOLUTE EOSINOPHIL COUNT 0.1 /CUMM (0.0-0.7); ABSOLUTE LYMPH COUNT 2.4 /CUMM (1.2-3.4); ABSOLUTE MONOCYTE COUNT 1.4 /CUMM (0.10-0.60); BASOPHIL % 0.3 % (0.0-2.0); EOSINOPHIL % 0.6 % (0-5); GRANULOCYTE % 75.2 % (42.2-75.2); MEAN PLATELET VOLUME 8.5 FL (7.4-10.4); PLATELET COUNT 187 /CUMM (130-400); RBC DISTRIBUTION WIDTH 14.2 % (11.5-14.5); WHITE BLOOD CELL COUNT 15.9 /CUMM (4.8-10.8)
--- NOTE | 2017-04-24 09:37 | PN- Cardiology ---
Subjective Subjective: I first saw Mr. Marrero, an 87-year-old male, in the hospital on 10/23/2014. His is a long-standing patient of mine. This patient has underlying hypertension as well as non-Hodgkin's lymphoma/CLL. 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 Most of his problems are quiescent at this time. However the patient was admitted on 10/21/2014 with acute diarrhea and lower GI bleeding. I was asked to see him for bradycardia and previous episode of asymptomatic tachycardia. His GI workup did not show any active bleeding. The patient was mildly bradycardic in the hospital. On 10/07/2014 the patient was at [place] for a routine hematology follow-up visit. During this visit his physicians found him to be in a regular supraventricular tachycardia at a rate of 149. The exact mechanism is not clear from the notes but the question of sinus tachycardia versus atrial flutter was raised. He was sent to the emergency room where follow-up EKG showed sinus rhythm. The patient was recommended to have cardiology follow-up and was scheduled to see me in the office on the day I saw him in the hospital. He has been on metoprolol 50 mg daily for some time. He is also on lisinopril for hypertension. He has no history of coronary disease or dyslipidemia. The patient was not aware of tachycardia at the time it was discovered at [place]. The patient denied any palpitations. He had no chest pain on exertion. He had mild dyspnea on exertion. He had no orthopnea, PND, and ankle edema, dizziness or syncope. He was asymptomatic from cardiac standpoint in the hospital. When I saw Giorgio in the hospital I recommended an echocardiogram and a Holter. The echocardiogram showed mild LVH with good left ventricular systolic function, some left atrial dilatation, some thickening of his mitral and aortic valves, with no stenosis or significant regurgitation. His pulmonary artery pressure was mildly elevated at 45-50 mmHg. His Holter showed that his average heart rate was 66. He had 521 PVCs and 11,000 supraventricular premature beats seen including numerous supraventricular runs, the longest one being about 705 beats, and the maximum rate 168. I did show this to Dr. Nguyen who thought this was most likely a degenerative atrial tachycardia mechanism. However, there are parts of it that look like it may be atrial fibrillation although there is some atrial activity noted. At his office visit in February of 2015 we had kept him on his usual dose of beta minor, which is metoprolol 50 mg daily. He did not have any clinical episodes of supraventricular tachycardia between his hospitalization and his office visit in February or the followup in August 2015. I last saw Giorgio in December 2015 which time he was doing well. Subsequently he has not returned for office visits, probably because his around that time and she was taking him to visits. Also he was being cared for by the but I am not sure when his last evaluation there was. The patient was admitted for a fall. There is also progressive dementia. In the hospital he has had frequent PACs and a few PVCs including occasional triplets. He is back on metoprolol which he previously was on. Objective Vital Signs and I&Os Vital Signs Date Time Temp Pulse Resp B/P B/P Pulse O2 O2 Flow FiO2 Mean Ox Delivery Rate 04/24 0730 98.4 62 18 128/74 98 Room Air 04/24 0000 Room Air Room Air 04/23 2300 98.2 64 18 97 Room Air 04/23 2112 87 140/70 04/23 2110 87 140/70 04/23 1515 97.1 75 20 136/70 94 Room Air 04/23 1414 Room Air Intake & Output 04/24 1600 04/24 0800 04/24 0000 04/23 1600 04/23 0800 04/23 0000 Intake Total 900 1380 1522 120 Output Total 300 400 100 325 Balance 812 833 0839 -205 Intake, IV 800 900 820 Intake, Oral 100 480 702 120 Number 1 Bowel Movements Output, Urine 300 400 100 325 Patient 269 lb 261 lb Weight Weight Bed scale Measurement Method Physical Exam: The patient is sitting in a chair in no acute distress. He is not oriented but otherwise appropriate. HEENT exam unremarkable Chest is clear Heart slightly irregular rhythm, no murmurs Extremities trace to 1+ edema Current Medications: Current Medications Sig/Katrina Start time Last Medication Dose Route Stop Time Status Admin Albuterol Sulfate 3 ML Q6P PRN 04/23 0800 AC INH Ampicillin Sodium/ 1,500 MG Q6 04/22 2359 AC 04/24 Sulbactam Sodium IV 0513 Sodium Chloride 100 ML Enoxaparin Sodium 40 MG DAILY 04/23 1045 DC 04/23 SC 1134 Ipratropium [place] 2.5 ML Q6-PRN PRN 04/23 0800 AC INH Metoprolol Tartrate 25 MG BID 04/23 2200 AC 04/23 PO 211 Pantoprazole Sodium 40 MG DAILY 04/23 0200 AC 04/23 IV 0329 Ramelteon 8 MG ONCE ONE 04/23 2330 DC 04/23 PO 04/23 2331 2334 Sodium Chloride 1,000 ML CONTINOUS INFUSION 04/22 2245 DC 04/23 IV 04/24 0123 1915 Tamsulosin HCl 0.4 MG DAILY 04/23 1000 AC 04/23 PO 0853 Results Last 48 Hrs of Labs/Mics: Laboratory Tests 04/24/17 0618: Anion Gap 7, Estimated GFR > 60, BUN/Creatinine Ratio 31.4 H, Total Bilirubin 3.3 H, Direct Bilirubin 0.6 H, Lactate Dehydrogenase 810 H, Creatine Kinase 1375 H, CBC w Diff Pending, WBC Pending, RBC Pending, Hgb Pending, Hct Pending, MCV Pending, MCH Pending, MCHC Pending, RDW Pending, Plt Count Pending, MPV Pending 04/23/17 1530: Anion Gap 11, Estimated GFR > 60, BUN/Creatinine Ratio 28.9 H, Creatine Kinase 2872 H, TSH 0.928, Free T4 1.20 04/23/17 0810: Lactic Acid 1.0, Creatine Kinase 4403 H, Troponin I 0.08 04/23/17 0800: Troponin I Cancelled 04/23/17 0430: Lactic Acid 1.4 04/23/17 0430: Anion Gap 9, Estimated GFR > 60, BUN/Creatinine Ratio 32.5 H, Creatine Kinase 5133 H, CBC w Diff MAN DIFF ORDERED, RDW 14.3, MPV 8.2, Segmented Neutrophils 79 H, Lymphocytes 18 L, Monocytes 3, Platelet Estimate ADEQUATE, Normochromic RBCs VERIFIED, Anisocytosis 1+, Urinalysis LIGHT H, Urine Color YEL, Urine Clarity CLEAR, Urine pH 5.5, Ur Specific [place] 1.020, Urine Protein 30 H, Urine Ketones 15 H, Urine Nitrite NEG, Urine Bilirubin NEG@ICTO, Urine Urobilinogen 1.0, Ur Leukocyte Esterase NEG, Ur Microscopic SEDIMENT EXAMINED, Urine RBC >75 H, Urine WBC 3-5 H, Ur Epithelial Cells FEW, Urine Bacteria FEW H, Urine Mucus MOD H, Urine Hemoglobin LARGE H, Urine Glucose NEG 04/23/17 0020: Troponin I 0.08 04/23/17 0020: Lactic Acid 2.0 04/22/17 1547: Urinalysis LIGHT H, Urine Color YEL, Urine Clarity CLEAR, Urine pH 5.5, Ur Specific [place] >= 1.030, Urine Protein 100 H, Urine Ketones 15 H, Urine Nitrite NEG, Urine Bilirubin NEG, Urine Urobilinogen 0.2, Ur Leukocyte Esterase NEG, Ur Microscopic SEDIMENT EXAMINED, Urine RBC 1-3, Urine WBC 1-3 H, Ur Epithelial Cells FEW, Urine Bacteria FEW H, Hyaline Casts FEW H, Urine Mucus FEW, Urine Hemoglobin MOD H, Urine Glucose NEG 04/22/17 1520: Anion Gap 17 H, Estimated GFR > 60, BUN/Creatinine Ratio 35.0 H, Glucose 144 H, Lactic Acid 4.2 H, Calcium 9.9, Total Bilirubin 2.8 H, Direct Bilirubin 0.8 H, AST 40, ALT 45, Alkaline Phosphatase 120, Creatine Kinase 893 H, Troponin I 0.03, Total Protein 6.7, Albumin 4.3, Globulin 2.4, Albumin/Globulin Ratio 1.8, PT 13.6 H, INR 1.24 H, APTT 39 H, CBC w Diff NO MAN DIFF REQ, RBC , MCV ND, MCH ND, MCHC ND, RDW 13.7, MPV 7.6, Gran % 91.8 H, Lymphocytes % 2.0 L, Monocytes % 6.2, Eosinophils % 0, Basophils % 0, Absolute Granulocytes 19.5 H, Absolute Lymphocytes 0.4 L, Absolute Monocytes 1.3 H, Absolute Eosinophils 0, Absolute Basophils 0 Assessment/Plan Assessment/Plan The patient presented with multiple falls. He has some supraventricular and ventricular arrhythmias but nothing critical. His echocardiogram was done and I will review. He has underlying dementia which appears to be progressive. It is unlikely he' ll be able to go home and probably will require at least short-term rehabilitation if not placement. Considering the fact that the patient's enzymes are negative, his rhabdomyolysis has improved, the patient can be discontinued from telemetry monitoring at this time and followed on general medicine until appropriate disposition has been decided. Continue telemetry? No
[2017-04-24 10:26] VITALS: BP 140/62
[2017-04-24 11:18] LABS: HEMATOCRIT 32 % (42-52)
[2017-04-24 14:47] VITALS: BP 122/60
--- NOTE | 2017-04-24 16:25 | ULTRASOUND REPORT ---
EXAMINATION: US RETROPERITONEAL COMPLETE (RENAL) CLINICAL INFORMATION: History of non-Hodgkin's lymphoma. CT findings suggesting lipoma versus malignancy. COMPARISON: None. TECHNIQUE: Real-time imaging of the kidneys and bladder. Color Doppler exam was used. FINDINGS: The exam is limited by body habitus and bowel gas. Patient difficulty following breathing instructions. Patient has limited mobility. RIGHT KIDNEY: 11.9 x 6.1 x 4.7 cm (SAG x AP x TRV). The 4 cm lesion seen on the CT of the midpole right kidney is not visualized with the ultrasound. On the CAT scan is lesion does have macroscopic fat and the lesion is therefore likely blending into the surrounding perinephric fat with ultrasound. There is no abnormal vascularity on the color Doppler around the kidney. The cortex of the kidney is of normal size and echogenicity with normal cortical thickness. There is no hydronephrosis. On the CAT scan of 11/20/2006 the 4 cm renal lesion in the right kidney was not evident. LEFT KIDNEY: 13.4 x 6.3 x 5.2 cm (SAG x AP x TRV). The 1.4 cm hypodense lesion in the posterior interpolar cortex of left kidney on the CAT scan of 04/22/2017 is not visualized on ultrasound. The cortex of the kidney is of normal size and echogenicity. There is no calculi and no hydronephrosis. No abnormal vascularity on Doppler. On the CAT scan of 11/20/2006 the lesion at the interpolar area of the left kidney was a 1 cm pedunculated cyst with a density measurement of 9 Hounsfield units, a cyst. This is seen on axial image 36 (2). This suggests that the lesion on the current CAT scan of 04/22/2017 is a complex cyst. BLADDER: Well distended and normal. Bilateral ureteral jets are demonstrated. Prevoid bladder volume is 218 mL. Patient was unable to void. IMPRESSION: The lesion seen on the CAT scan of 04/22/2017 involving the right and left kidney are not visualized on this ultrasound study. On this ultrasound renal exam there is no abnormal mass or hydronephrosis or calculus. The renal lesions seen on prior CT study could be further assessed with a followup pre and postcontrast CT study of kidneys or MRI.
--- NOTE | 2017-04-24 17:52 | Cons- Hematology ---
General Information and HPI Consulting Request Date of Consult: 04/24/17 Requested By: Josiah Pritchard MD Reason for Consult: NHL, Prostate cancer, Renal cancer, bone metastases Source of Information: old records Exam Limitations: dementia History of Present Illness: Mr. 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 History is taken from chart review. Patient was found by his granddaughter on the ground. Patient was taken to the [facility] ED for further evaluation. He was noted to have coffee ground emesis in the ED. He was seen by GI during the hospitalization. EGD was defered for the time. He was noted to have a leukocytosis with WBC of 21,300 and 91.8% granulocytes. Repeated WBC on 04/23 was 24,300. WBC today is 15,900. Hemoglobin is also downward trending with platelet. Bilirubin is elevated. LDH and CK were also elevated. There was concerns for rhabdomyolysis Imaging was done during admission. 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 There is a 4 cm mixed fat and soft tissue- containing lesion along the anterior margin of the right kidney and an indeterminate 1.4 cm hypodense lesion within the posterior interpolar left kidney. Allergies/Medications Allergies: Coded Allergies: NO KNOWN ALLERGIES (10/21/14) Home Med List: Aspirin (Ecotrin*) 81 MG TABLET.DR 1 TAB PO DAILY HEART/BLOOD (Reported) Cyanocobalamin (Vitamin B-12) (Unknown Strength) TABLET (Unknown Dose) PO DAILY SUPPLEMENT (Reported) Folic Acid (Unknown Strength) CAPSULE (Unknown Dose) PO DAILY SUPPLEMENT ( Reported) Lisinopril (Prinivil) (Unknown Strength) TABLET (Unknown Dose) PO DAILY BP ( Reported) Metoprolol Succinate (Unknown Strength) TAB.ER.24H (Unknown Dose) PO DAILY HEART/BP (Reported) Nystatin (Nyamyc) (Unknown Strength) POWDER (Unknown Dose) TOP AD GROIN ( Reported) Tamsulosin HCl (Flomax) 0.4 MG CAP.ER.24H 1 CAP PO DAILY PROSTATE (Reported) Current Medications: Current Medications Sig/Katrina Start time Last Medication Dose Route Stop Time Status Admin Albuterol Sulfate 3 ML Q6P PRN 04/23 0800 AC INH Ampicillin Sodium/ 1,500 MG Q6 04/22 2359 AC 04/24 Sulbactam Sodium IV 1657 Sodium Chloride 100 ML Ipratropium [place] 2.5 ML Q6-PRN PRN 04/23 0800 AC INH Metoprolol Tartrate 25 MG BID 04/23 2200 AC 04/24 PO 1026 Pantoprazole Sodium 40 MG DAILY 04/23 0200 AC 04/24 IV 1026 Ramelteon 8 MG ONCE ONE 04/23 2330 DC 04/23 PO 04/23 2331 2334 Sodium Chloride 1,000 ML CONTINOUS INFUSION 04/22 2245 DC 04/23 IV 04/24 0123 1915 Tamsulosin HCl 0.4 MG DAILY 04/23 1000 AC 04/24 PO 1026 Review of Systems Review of Systems: Limited due to mental status. Review of Systems Constitutional: Denies: chills, fever. Cardiovascular: Denies: chest pain. Respiratory: Denies: hemoptysis. GI: Denies: abdominal pain. Genitourinary: Denies: dysuria. Neurological/Psychological: Reports: confusion. 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 Home Services at Home: Home Health Aide Smoking Status: Former Smoker ETOH Use: denies use Illicit Drug Use: denies illicit drug use Employment History Employment: Retired [employer] Vital Signs and I&O Vital Signs Date Time Temp Pulse Resp B/P B/P Pulse O2 O2 Flow FiO2 Mean Ox Delivery Rate 04/24 1536 Room Air Room Air 04/24 1447 97.8 56 20 122/60 97 Room Air 04/24 1436 Room Air Room Air 04/24 1026 63 140/62 04/24 1026 63 140/62 04/24 1026 63 140/62 04/24 0800 Room Air 04/24 0730 98.4 62 18 128/74 98 Room Air 04/24 0000 Room Air Room Air 04/23 2300 98.2 64 18 97 Room Air 04/23 2112 87 140/70 04/23 2109 87 140/70 Intake & Output 04/24 1600 04/24 0800 04/24 0000 Intake Total 239 916 8447 Output Total 200 300 400 Balance 360 600 980 Intake, IV 140 800 900 Intake, Oral 420 100 480 Output, Urine 200 300 400 Patient 121.79 kg 121.79 kg Weight Physical Exam General Appearance: well developed/nourished, no apparent distress, alert, awake , comfortable, obese Head: atraumatic Eyes: Bilateral: PERRL, EOMI. Neck: supple Respiratory: normal breath sounds, chest non-tender, no respiratory distress, quiet respiration Cardiovascular: regular rate/rhythm Gastrointestinal: normal bowel sounds, soft, non-tender Extremities: pedal edema Neurologic/Psych: awake, alert, oriented to place and person Cranial Nerves: normal speech Skin: diffuse keratosis, basal lesion throughout body Lymphatic: no anterior cervical marilynn Last 48 Hours of Lab Results: Laboratory Tests 04/24 04/23 04/23 0618 1530 0810 Chemistry Sodium (137 - 145 mmol/L) 143 145 Potassium (3.5 - 5.1 mmol/L) 3.5 3.8 Chloride (98 - 107 mmol/L) 111 H 110 H Carbon Dioxide (22 - 30 mmol/L) 25 24 Anion Gap (5 - 16) 7 11 BUN (9 - 20 mg/dL) 22 H 26 H Creatinine (0.7 - 1.2 mg/dL) 0.7 0.9 Estimated GFR (>60 ml/min) > 60 > 60 BUN/Creatinine Ratio (7 - 25 %) 31.4 H 28.9 H Lactic Acid (0.7 - 2.1 mmol/L) 1.0 Iron (49 - 181 ug/dL) 107 TIBC (261 - 462 ug/dL) 229 L % Saturation (16 - 45 %) 46 H Ferritin (17.9 - 464 ng/mL) 300.0 Total Bilirubin (0.2 - 1.3 mg/dL) 3.3 H Direct Bilirubin (< 0.4 mg/dL) 0.6 H Lactate Dehydrogenase (313 - 618 U/L) 810 H Creatine Kinase (55 - 170 U/L) 1375 H 2872 H 4403 H Troponin I (<0.11 ng/ml) 0.08 Total PSA (0.00 - 4.00 ng/mL) 63.60 H TSH (0.270 - 4.200 uIU/mL) 0.928 Free T4 (0.85 - 1.93 ng/dL) 1.20 Hematology CBC w Diff NO MAN DIFF REQ WBC (4.8 - 10.8 /CUMM) 15.9 H RBC (4.70 - 6.10 /CUMM) Hgb (14.0 - 18.0 G/DL) 10.8 L Hct (42 - 52 %) 32 L RDW (11.5 - 14.5 %) 14.2 Plt Count (130 - 400 /CUMM) 187 MPV (7.4 - 10.4 FL) 8.5 Gran % (42.2 - 75.2 %) 75.2 Lymphocytes % (20.5 - 51.1 %) 14.9 L Monocytes % (1.7 - 9.3 %) 9.0 Eosinophils % (0 - 5 %) 0.6 Basophils % (0.0 - 2.0 %) 0.3 Absolute Granulocytes (1.4 - 6.5 /CUMM) 12.0 H Absolute Lymphocytes (1.2 - 3.4 /CUMM) 2.4 Absolute Monocytes (0.10 - 0.60 /CUMM) 1.4 H Absolute Eosinophils (0.0 - 0.7 /CUMM) 0.1 Absolute Basophils (0.0 - 0.2 /CUMM) 0 04/23 04/23 04/23 0800 0430 0430 Chemistry Sodium (137 - 145 mmol/L) 145 Potassium (3.5 - 5.1 mmol/L) 3.4 L Chloride (98 - 107 mmol/L) 111 H Carbon Dioxide (22 - 30 mmol/L) 24 Anion Gap (5 - 16) 9 BUN (9 - 20 mg/dL) 26 H Creatinine (0.7 - 1.2 mg/dL) 0.8 Estimated GFR (>60 ml/min) > 60 BUN/Creatinine Ratio (7 - 25 %) 32.5 H Lactic Acid (0.7 - 2.1 mmol/L) 1.4 Creatine Kinase (55 - 170 U/L) 5133 H Troponin I Cancelled Hematology CBC w Diff MAN DIFF ORDERED WBC (4.8 - 10.8 /CUMM) 24.3 H Hgb (14.0 - 18.0 G/DL) 12.0 L Hct (42 - 52 %) 36.0 L RDW (11.5 - 14.5 %) 14.3 Plt Count (130 - 400 /CUMM) 219 MPV (7.4 - 10.4 FL) 8.2 Segmented Neutrophils (42.2 - 75.2 %) 79 H Lymphocytes (20.5 - 51.1 %) 18 L Monocytes (1.7 - 9.3 %) 3 Platelet Estimate (ADEQUATE) ADEQUATE Normochromic RBCs VERIFIED Anisocytosis 1+ Urines Urinalysis LIGHT H Urine Color (YEL,AMB,STR) YEL Urine Clarity (CLEAR) CLEAR Urine pH (5.0 - 8.0) 5.5 Ur Specific [place] (1.001 - 1.035) 1.020 Urine Protein (NEG,<30 MG/DL) 30 H Urine Ketones (NEG) 15 H Urine Nitrite (NEG) NEG Urine Bilirubin (NEG) NEG@ICTO Urine Urobilinogen (0.1 - 1.0 EU/dl) 1.0 Ur Leukocyte Esterase (NEG) NEG Ur Microscopic SEDIMENT EXAMINED Urine RBC (0 - 5 /HPF) >75 H Urine WBC (0 - 2 /HPF) 3-5 H Ur Epithelial Cells (NONE,FEW) FEW Urine Bacteria (NEG/NONE) FEW H Urine Mucus (FEW,NONE) MOD H Urine Hemoglobin (NEG) LARGE H Urine Glucose (N MG/DL) NEG 04/23 04/23 0020 0020 Chemistry Lactic Acid (0.7 - 2.1 mmol/L) 2.0 Troponin I (<0.11 ng/ml) 0.08 Imaging/Other Studies: CT head/cervical spine 04/22/2017: CT scan of the head: No acute intracranial pathology. Mild involutional changes and prominent periventricular deep white matter microangiopathic changes seen. Mucous retention cyst in the left maxillary sinus and in the left sphenoid sinus is seen. CT scan of the cervical spine: No evidence of cervical spine fracture. Cervical dextroscoliosis with multilevel advanced degenerative disc disease throughout the mid and lower cervical spine. CT chest/abdomen/pelvis with contrast 04/22/2017: No evidence of hollow or solid visceral injury within the chest, abdomen, or pelvis. Nondisplaced lucency courses through the left fifth anterior costochondral cartilage in the right seventh anterior costochondral cartilage suggesting age-indeterminate nondisplaced fracture through these areas. No displaced rib fractures. No additional fractures. 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 Nonspecific esophageal wall thickening that can be correlated with endoscopy. There is a 4 cm mixed fat and soft tissue- containing lesion along the anterior margin of the right kidney that may reflect an angiomyolipoma or treated renal malignancy which can be correlated with the clinical history. Indeterminate 1.4 cm hypodense lesion within the posterior interpolar left kidney can be further assessed with ultrasound. Multinodular thyroid gland with coarse calcifications. Prostatomegaly. Nonobstructing right upper pole renal calculus. Assessment/Plan Assessment: Mr. 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 History is taken from chart review. He was admitted after a fall at home. He was found on the floor in his room. He was noted to have elevated WBC and CPK on admission. He was noted to have numerous osteoblastic lesion in the axial skeleton. He was also noted to have right renal lesion. Due to numerous findings, hematology/oncology was consulted. Patient does see an hematology/oncology physician at the [facility]. I had previous recommended getting records from his oncologist. His records noted known RCC in the right kidney. He has know prostate cancer but unclear if metastatic. He has known NHL which is possibly CLL. He has seen Dr. Leon at [facility] in 2015 for his NHL. He is currently being managed at the [facility]. RCC was treated wity cryotherapy in 2013. He is being followed by urology. Left kidney seems to be a complex cyst on US done. Imaging on presentation is very concerning for metastatic prostate cancer given the osteoblastic nature. His PSA is elevated. He will need to have bone scan. He will need to follow up with his oncology on further workup and treatment. He may need ADT. His leukocytosis is likely reactive given the differentials on the CBC. He can be monitored for now. He does have worsening anemia. This may be dilutional. He should be monitored closely given elevated bilirubin and history of cold agglutinin AIHA. 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 Rhabdomyolysis 2. GI bleed 3. Leukocytosis 4. Autoimmune hemolytic anemia, cold antibody type 5. Prostate cancer genetic susceptibility 6. Renal cell carcinoma 7. NHL (non-Hodgkin's lymphoma) Other Findings/Comments: Please call [phone] with any questions or concerns. Consult Acknowledgment - Thank you for your consult request.
--- NOTE | 2017-04-24 18:06 | ECHOCARDIOGRAM REPORT ---
CASS GUPTA Age: 87 : 1930 Gender: M Exam Date: 04/24/2017 11:16 Exam Location: [address] Ht (in): 72 Wt (lb): 268 BSA: 2.53 BP: 128 / 74 Ordering Physician: Lillie Pike MD Referring Physician: Lillie Pike MD Technologist: Julio Cesar Brower [facility] Room Number: [id number] Indications: LIGHTHEADEDNESS Rhythm: Sinus Technical Quality: Fair FINDINGS Left Ventricle Normal global left ventricular size, wall thickness, systolic function with no obvious regional wall motion abnormalities. Left ventricular ejection fraction is estimated at >65 %. "pseudonormal" filling pattern of the left ventricle for age (stage 2 diastolic dysfunction). Right Ventricle The right ventricle is normal in size and function. Right Atrium The right atrium is normal in size. Left Atrium Mild left atrial dilatation. The interatrial septum is intact. Mitral Valve The mitral valve is normal in structure and function. There is no mitral regurgitation. Aortic Valve Diffuse thickening of the aortic valve cusps with mildly reduced excursion. No aortic stenosis. No aortic regurgitation. Tricuspid Valve Tricuspid valve is normal in structure and function. Trace tricuspid regurgitation. Right ventricular systolic pressure estimated to be elevated at 40-45 mmHg. Pulmonic Valve Pulmonic valve not well visualized, grossly normal. No pulmonic regurgitation. Pericardium Normal pericardium without effusion. No pleural effusion. Great Vessels Normal aortic root dimension. Mildly dilated ascending aorta. The aortic arch and great vessels are not well seen. CONCLUSIONS Normal global left ventricular size, wall thickness, systolic function with no obvious regional wall motion abnormalities. Left ventricular ejection fraction is estimated at >65 %. "pseudonormal" filling pattern of the left ventricle for age (stage 2 diastolic dysfunction). Mild left atrial dilatation. Diffuse thickening of the aortic valve cusps with mildly reduced excursion. No aortic stenosis. The mitral valve is normal in structure and function. Right ventricular systolic pressure estimated to be elevated at 40- 45 mmHg. Mildly dilated ascending aorta. The aortic arch and great vessels are not well seen. Bennie Veronica M.D. (Electronically Signed) Final Date: 24 April 2017 18:05 MEASUREMENTS (Male / Female) Normal Values 2D ECHO LV Diastolic Diameter PLAX 6.4 cm 4.2 - 5.9 / 3.9 - 5.3 cm LV Systolic Diameter PLAX 3.1 cm 2.1 - 4.0 cm LV Fractional Shortening PLAX 51.6 % 25 - 46 % LV Ejection Fraction 2D Teich 81.8 % IVS Diastolic Thickness 1.0 cm LVPW Diastolic Thickness 1.0 cm LV Relative Wall Thickness 0.3 RV Internal Dim ED PLAX 3.6 cm 1.9 - 3.8 cm LVOT Diameter 2.2 cm Aortic Root Diameter 3.3 cm LA Systolic Diameter LX 4.6 cm 3.0 - 4.0 / 2.7 - 3.8 cm Ascending Aorta Diameter 3.8 cm DOPPLER AV Peak Velocity 156.0 cm/s AV Peak Gradient 9.7 mmHg AV Mean Velocity 110.0 cm/s AV Mean Gradient 5.0 mmHg AV Velocity Time Integral 40.4 cm LVOT Peak Velocity 100.0 cm/s LVOT Peak Gradient 4.0 mmHg LVOT Mean Velocity 55.2 cm/s LVOT Mean Gradient 2.0 mmHg LVOT Velocity Time Integral 22.3 cm LVOT Stroke Volume 84.8 cm AV Area Cont Eq vti 2.1 cm AV Area Cont Eq pk 2.4 cm MV Peak Velocity 101.0 cm/s MV Peak Gradient 4.1 mmHg MV Mean Velocity 51.2 cm/s MV Mean Gradient 1.0 mmHg Mitral E Point Velocity 115.0 cm/s Mitral A Point Velocity 57.3 cm/s Mitral E to A Ratio 2.0 MV PHT Velocity 109.0 cm/s MV Deceleration Piute 315.0 cm/s MV Pressure Half Time 103.8 ms MV Area PHT 2.1 cm MV Deceleration Time 229.0 ms TR Peak Velocity 300.0 cm/s TR Peak Gradient 36.0 mmHg Right Atrial Pressure 10.0 mmHg Pulmonary Artery Systolic Pressu 46.0 mmHg Right Ventricular Systolic Press 46.0 mmHg PV Peak Velocity 102.0 cm/s PV Peak Gradient 4.2 mmHg PV Mean Velocity 79.5 cm/s PV Mean Gradient 3.0 mmHg PV Velocity Time Integral 26.8 cm
[2017-04-24 22:03] VITALS: BP 120/74
[2017-04-25 07:21] VITALS: BP 128/74
--- NOTE | 2017-04-25 08:27 | PN- Housestaff ---
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 No issues. Slept overnight. No pain. No vomiting or bleeding. Review of Systems Constitutional: Reports: no symptoms. Cardiovascular: Reports: no symptoms. Respiratory: Reports: no symptoms. Gastrointestinal: Reports: no symptoms. Genitourinary: Reports: no symptoms. Musculoskeletal: Reports: no symptoms. Objective Last 24 Hrs of Vital Signs/I&O Vital Signs Date Time Temp Pulse Resp B/P B/P Pulse O2 O2 Flow FiO2 Mean Ox Delivery Rate 04/25 1451 98.0 54 18 128/82 99 Room Air 04/25 0919 61 128/74 04/25 0919 61 128/74 04/25 0721 97.6 61 18 128/74 97 Room Air 04/24 2204 56 122/60 04/24 2203 97.5 54 18 120/74 98 Intake & Output 04/25 1600 04/25 0800 04/25 0000 Intake Total 620 350 200 Output Total 500 Balance 620 350 -300 Intake, IV 120 250 Intake, Oral 500 100 200 Number 1 Bowel Movements Output, Urine 500 Patient 269 lb Weight Physical Exam General Appearance: Alert, Cooperative, No Acute Distress Cardiovascular: Regular Rate, Normal S1, Normal S2 Lungs: Clear to Auscultation, Normal Air Movement Abdomen: Normal Bowel Sounds, Soft, No Tenderness Extremities: 1+ LE edema b/l Vascular: 2+ radial pulses Current Medications: Current Medications Sig/Katrina Start time Last Medication Dose Route Stop Time Status Admin Albuterol Sulfate 3 ML Q6P PRN 04/24 799 AC INH Ampicillin Sodium/ 1,500 MG Q6 04/22 2359 04/25 Sulbactam Sodium IV 1757 Sodium Chloride 100 ML Ipratropium [place] 2.5 ML Q6-PRN PRN 04/24 799 AC INH Metoprolol Tartrate 25 MG BID 04/23 2199 AC 04/25 PO 0919 Pantoprazole Sodium 40 MG DAILY 04/23 0200 04/25 IV 0920 Tamsulosin HCl 0.4 MG DAILY 04/23 1000 AC 04/25 PO 0919 Last 24 Hrs of Lab/Moncho Results Last 24 Hrs of Labs/Mics: Laboratory Tests 04/25/17 0639: Anion Gap 8, Estimated GFR > 60, BUN/Creatinine Ratio 27.1 H, Total Bilirubin 3.1 H, Direct Bilirubin 0.9 H, AST 84 H, ALT 79 H, Alkaline Phosphatase 71, Creatine Kinase 613 H, Total Protein 5.3 L, Albumin 3.0 L, CBC w Diff MAN DIFF ORDERED, RBC , MPV 8.6, Segmented Neutrophils 72, Lymphocytes 22, Monocytes 6, Platelet Estimate VERIFIED BY SMEAR, Poikilocytosis 1+, Anisocytosis 1+, Macrocytic Cells 2+ Assessment/Plan Assessment: 87 yo M pmhx of alzheimers, htn, melanoma, nonhodkins lymphoma, prostate cancer, SBO, cholecystetomy presenting for weakness after a fall but also found to have coffee ground emesis vomiting Problem list: #1 acute blood loss secondary to GI bleed #2 history of CLL with leukocytosis on admission #3 history of non-Hodgkin's lymphoma. #4 rhabdomyolysis #5 aspiration pneumonitis #6 history of COPD #7 multiple lesions on kidney likely metastatic #8 syncope #9 proteinuria #10 lactic acidosis #[address] showed nondisplaced lucency courses through the left fifth anterior costochondral cartilage in the right seventh anterior costochondral cartilage suggesting age-indeterminate nondisplaced fracture through these areas. Indeterminate 1.4 cm hypodense lesion within the posterior interpolar left kidney. Nonspecific esophageal wall thickening Plan: [facility] Will have case managemetn touch base with family again. -GI deferring EGD for now -CPK trending down ([phone]) -Records request faxed 04/24 for Hem/Onc reports at [place] -Hem/Onc: leukocytosis related to NHL and pt should f/u with [place] oncologistyariel need bone scan for osteoblastic lesions, consider biopsy vs treatment of prostate cancer (PSA 63.60), RCC - pt should f/u with oncologist and urologist, -As per Hem/Onc patient saw Dr. Tremaine Leon at [place] for CLL but leukocytosis all neutrophils that most likely reactive -Renal US did not find lesiosn found on CT. Consider CT with contrast or MRI -Anemia: monitor for hemolysis. Retic elevated @ 2.1. Tbili 3.2. CONSIDER steroids if worsening anemia -Patient may require STR upon discharge Problem List: 1. NHL (non-Hodgkin's lymphoma) 2. Renal cell carcinoma 3. Prostate cancer genetic susceptibility 4. GI bleed 5. Rhabdomyolysis 6. Leukocytosis 7. Hyperbilirubinemia 8. Autoimmune hemolytic anemia, cold antibody type 9. GI bleed Pain Ratin Pain Location: none Pain Goal: Remain pain free Pain Plan: pain pathway Tomorrow's Labs & Rationales: cbc bep lft retic count Danitza Pritchardjagdeep 04/25/17 1423: Attending MD Review Statement Attending Statement Attending MD Statement: examined this patient, discuss w/resident/PA/CORN CUTTER, agreed w/resident/PA/CORN CUTTER, reviewed EMR data (avail), discussed with nursing, discussed with case mgmt Attending Assessment/Plan: D/w case management about talk with daughter winifred and she would want pt transferred to [place]. [place] is on diversion so we will contact them again tomorrow regarding transfer. d/w pt the care plan.
[2017-04-25 09:00] LABS: MEAN PLATELET VOLUME 8.6 FL (7.4-10.4); PLATELET COUNT 196 /CUMM (130-400); WHITE BLOOD CELL COUNT 17.4 /CUMM (4.8-10.8)
--- NOTE | 2017-04-25 10:42 | PN- Cardiology ---
Subjective Subjective: The patient is sitting in a chair and appears comfortable. He is off telemetry. His echocardiogram showed normal left ventricular systolic function, mild pulmonary hypertension, thickening of the aortic valve but no significant stenosis. There was diastolic dysfunction. Objective Vital Signs and I&Os Vital Signs Date Time Temp Pulse Resp B/P B/P Pulse O2 O2 Flow FiO2 Mean Ox Delivery Rate 04/25 918 61 128/74 04/25 0919 61 128/74 04/25 0721 97.6 61 18 128/74 97 Room Air 04/24 2204 56 122/60 04/24 2203 97.5 54 18 120/74 98 04/24 1536 Room Air Room Air 04/24 1447 97.8 56 20 122/60 97 Room Air 04/24 1436 Room Air Room Air Intake & Output 04/25 1600 04/25 0800 04/25 0000 04/24 1600 04/24 0800 04/24 0000 Intake Total 200 350 200 239 577 4104 Output Total 500 200 300 400 Balance 200 350 -300 360 600 980 Intake, IV 250 140 800 900 Intake, Oral 200 100 200 420 100 480 Output, Urine 500 200 300 400 Patient 269 lb 269 lb 269 lb Weight Physical Exam: He is in no distress HEENT exam normal Chest clear Heart regular rhythm, soft systolic murmur at the base No edema Current Medications: Current Medications Sig/Katrina Start time Last Medication Dose Route Stop Time Status Admin Albuterol Sulfate 3 ML Q6P PRN 04/24 799 AC INH Ampicillin Sodium/ 1,500 MG Q6 04/22 2359 AC 04/25 Sulbactam Sodium IV 0601 Sodium Chloride 100 ML Ipratropium [place] 2.5 ML Q6-PRN PRN 04/24 799 AC INH Metoprolol Tartrate 25 MG BID 04/23 2199 AC 04/25 PO 0919 Pantoprazole Sodium 40 MG DAILY 04/23 0200 AC 04/25 IV 0920 Tamsulosin HCl 0.4 MG DAILY 04/23 1000 AC 04/25 PO 09 Results Last 48 Hrs of Labs/Mics: Laboratory Tests 04/25/17 0639: Anion Gap 8, Estimated GFR > 60, BUN/Creatinine Ratio 27.1 H, Total Bilirubin 3.1 H, Direct Bilirubin 0.9 H, AST 84 H, ALT 79 H, Alkaline Phosphatase 71, Creatine Kinase 613 H, Total Protein 5.3 L, Albumin 3.0 L, CBC w Diff Pending , WBC Pending, RBC Pending, Hgb Pending, Hct Pending, MCV Pending, MCH Pending, MCHC Pending, RDW Pending, Plt Count Pending, MPV Pending 04/24/17 1955: Total Bilirubin 3.2 H, Direct Bilirubin 0.8 H, Retic Count 2.81 H 04/24/17 0618: Anion Gap 7, Estimated GFR > 60, BUN/Creatinine Ratio 31.4 H, Iron 107, TIBC 229 L, % Saturation 46 H, Ferritin 300.0, Total Bilirubin 3.3 H, Direct Bilirubin 0.6 H, Lactate Dehydrogenase 810 H, Creatine Kinase 1375 H, Total PSA 63.60 H, CBC w Diff NO MAN DIFF REQ, RBC , RDW 14.2, MPV 8.5, Gran % 75.2 , Lymphocytes % 14.9 L, Monocytes % 9.0, Eosinophils % 0.6, Basophils % 0.3, Absolute Granulocytes 12.0 H, Absolute Lymphocytes 2.4, Absolute Monocytes 1.4 H, Absolute Eosinophils 0.1, Absolute Basophils 0 04/23/17 1530: Anion Gap 11, Estimated GFR > 60, BUN/Creatinine Ratio 28.9 H, Creatine Kinase 2872 H, TSH 0.928, Free T4 1.20 Recent Imaging Studies: CONCLUSIONS Normal global left ventricular size, wall thickness, systolic function with no obvious regional wall motion abnormalities. Left ventricular ejection fraction is estimated at >65 %. "pseudonormal" filling pattern of the left ventricle for age (stage 2 diastolic dysfunction). Mild left atrial dilatation. Diffuse thickening of the aortic valve cusps with mildly reduced excursion. No aortic stenosis. The mitral valve is normal in structure and function. Right ventricular systolic pressure estimated to be elevated at 40- 45 mmHg. Mildly dilated ascending aorta. The aortic arch and great vessels are not well seen. Bennie Veronica M.D. (Electronically Signed) Final Date: 24 April 2017 18:05 Assessment/Plan Assessment/Plan The patient is stable from a cardiac standpoint. He can be discharged to rehabilitation when the rest of his medical issues are resolved. Please call for further cardiology input. Continue telemetry? Not applicable
[2017-04-25 10:58] LABS: HEMATOCRIT 33 % (42-52)
--- NOTE | 2017-04-25 13:53 | PN- Gastroenterology ---
Assessment/Plan GI Assessment/Recommendations: Elderly patient with dementia, with history of non-Hodgkin's lymphoma, melanoma, prostate cancer and hemolytic anemia. The patient presents after a presumed fall, with coffee ground emesis, but Hemoccult negative stool in the emergency room, and gradual mild drop in hematocrit during the hospitalization, which has plateaued. He described odynophagia, and a CT scan questions esophageal "wall thickening." There is evidence of metastatic bone disease, and a markedly elevated PSA. There is persistent hyperbilirubinemia, which is mostly indirect, in the setting of known hemolytic anemia. Long discussion was held with the patient's daughter, Phoebe Bowden. She continued to express frustration with the patient not being at the [facility], where he usually gets his care. Apparently this is being addressed. Until such time, she does not wish to pursue endoscopic evaluation. Assessment 1. Hematemesis, minor GI bleed, ceased 2. Indirect hyperbilirubinemia, likely secondary to autoimmune hemolytic anemia. However there is new mild transaminitis. 3. Odynophagia, question of abnormal esophagus on CT scan Recommendations * Follow-up CBC, LFTs * PPI * Defer decision re EGD for now Subjective Subjective: Patient remains confused. Objective Vital Signs and I&Os Vital Signs Date Time Temp Pulse Resp B/P B/P Pulse O2 O2 Flow FiO2 Mean Ox Delivery Rate 04/25 0919 61 128/74 04/25 0919 61 128/74 04/25 0721 97.6 61 18 128/74 97 Room Air 04/24 2204 56 122/60 04/24 2203 97.5 54 18 120/74 98 04/24 1536 Room Air Room Air 04/24 1447 97.8 56 20 122/60 97 Room Air 04/24 1436 Room Air Room Air Intake & Output 04/25 1600 04/25 0400 04/24 1600 04/24 0400 04/23 1600 04/23 0400 Intake Total 012 922 0755 1380 1642 Output Total 500 500 400 425 Balance 550 -300 775 427 7372 Intake, IV 250 940 900 820 Intake, Oral 300 200 520 480 822 Number 1 Bowel Movements Output, Urine 500 500 400 425 Patient 269 lb 269 lb 269 lb 261 lb Weight Weight Bed scale Measurement Method Physical Exam: Sclera anicteric. No adenopathy. Abdomen benign Current Medications: Current Medications Sig/Katrina Start time Last Medication Dose Route Stop Time Status Admin Albuterol Sulfate 3 ML Q6P PRN 04/23 0800 AC INH Ampicillin Sodium/ 1,500 MG Q6 04/22 2359 AC 04/25 Sulbactam Sodium IV 1157 Sodium Chloride 100 ML Ipratropium [place] 2.5 ML Q6-PRN PRN 04/23 0800 AC INH Metoprolol Tartrate 25 MG BID 04/23 2200 AC 04/25 PO 0919 Pantoprazole Sodium 40 MG DAILY 04/23 0200 AC 04/25 IV 0920 Tamsulosin HCl 0.4 MG DAILY 04/23 1000 AC 04/25 PO 0919 Results Pertinent Lab Results: Laboratory Tests 04/25 04/24 0639 1955 Chemistry Sodium (137 - 145 mmol/L) 144 Potassium (3.5 - 5.1 mmol/L) 3.7 Chloride (98 - 107 mmol/L) 109 H Carbon Dioxide (22 - 30 mmol/L) 26 Anion Gap (5 - 16) 8 BUN (9 - 20 mg/dL) 19 Creatinine (0.7 - 1.2 mg/dL) 0.7 Estimated GFR (>60 ml/min) > 60 BUN/Creatinine Ratio (7 - 25 %) 27.1 H Total Bilirubin (0.2 - 1.3 mg/dL) 3.1 H 3.2 H Direct Bilirubin (< 0.4 mg/dL) 0.9 H 0.8 H AST (17 - 59 U/L) 84 H ALT (21 - 72 U/L) 79 H Alkaline Phosphatase (< 127 U/L) 71 Creatine Kinase (55 - 170 U/L) 613 H Total Protein (6.3 - 8.2 g/dL) 5.3 L Albumin (3.5 - 5.0 g/dL) 3.0 L Hematology CBC w Diff MAN DIFF ORDERED WBC (4.8 - 10.8 /CUMM) 17.4 H RBC (4.70 - 6.10 /CUMM) Hgb (14.0 - 18.0 G/DL) 11.2 L Hct (42 - 52 %) 33 L Plt Count (130 - 400 /CUMM) 196 MPV (7.4 - 10.4 FL) 8.6 Segmented Neutrophils (42.2 - 75.2 %) 72 Lymphocytes (20.5 - 51.1 %) 22 Monocytes (1.7 - 9.3 %) 6 Platelet Estimate (ADEQUATE) VERIFIED BY SMEAR Poikilocytosis 1+ Anisocytosis 1+ Macrocytic Cells 2+ Retic Count (0.5 - 2.0 %) 2.81 H 0312 04/23 04/23 0618 1530 0810 Chemistry Sodium (137 - 145 mmol/L) 143 145 Potassium (3.5 - 5.1 mmol/L) 3.5 3.8 Chloride (98 - 107 mmol/L) 111 H 110 H Carbon Dioxide (22 - 30 mmol/L) 25 24 Anion Gap (5 - 16) 7 11 BUN (9 - 20 mg/dL) 22 H 26 H Creatinine (0.7 - 1.2 mg/dL) 0.7 0.9 Estimated GFR (>60 ml/min) > 60 > 60 BUN/Creatinine Ratio (7 - 25 %) 31.4 H 28.9 H Lactic Acid (0.7 - 2.1 mmol/L) 1.0 Iron (49 - 181 ug/dL) 107 TIBC (261 - 462 ug/dL) 229 L % Saturation (16 - 45 %) 46 H Ferritin (17.9 - 464 ng/mL) 300.0 Total Bilirubin (0.2 - 1.3 mg/dL) 3.3 H Direct Bilirubin (< 0.4 mg/dL) 0.6 H Lactate Dehydrogenase (313 - 618 U/L) 810 H Creatine Kinase (55 - 170 U/L) 1375 H 2872 H 4403 H Troponin I (<0.11 ng/ml) 0.08 Total PSA (0.00 - 4.00 ng/mL) 63.60 H TSH (0.270 - 4.200 uIU/mL) 0.928 Free T4 (0.85 - 1.93 ng/dL) 1.20 Hematology CBC w Diff NO MAN DIFF REQ WBC (4.8 - 10.8 /CUMM) 15.9 H RBC (4.70 - 6.10 /CUMM) Hgb (14.0 - 18.0 G/DL) 10.8 L Hct (42 - 52 %) 32 L RDW (11.5 - 14.5 %) 14.2 Plt Count (130 - 400 /CUMM) 187 MPV (7.4 - 10.4 FL) 8.5 Gran % (42.2 - 75.2 %) 75.2 Lymphocytes % (20.5 - 51.1 %) 14.9 L Monocytes % (1.7 - 9.3 %) 9.0 Eosinophils % (0 - 5 %) 0.6 Basophils % (0.0 - 2.0 %) 0.3 Absolute Granulocytes (1.4 - 6.5 /CUMM) 12.0 H Absolute Lymphocytes (1.2 - 3.4 /CUMM) 2.4 Absolute Monocytes (0.10 - 0.60 /CUMM) 1.4 H Absolute Eosinophils (0.0 - 0.7 /CUMM) 0.1 Absolute Basophils (0.0 - 0.2 /CUMM) 0 04/23 04/23 04/23 0800 0430 0430 Chemistry Sodium (137 - 145 mmol/L) 145 Potassium (3.5 - 5.1 mmol/L) 3.4 L Chloride (98 - 107 mmol/L) 111 H Carbon Dioxide (22 - 30 mmol/L) 24 Anion Gap (5 - 16) 9 BUN (9 - 20 mg/dL) 26 H Creatinine (0.7 - 1.2 mg/dL) 0.8 Estimated GFR (>60 ml/min) > 60 BUN/Creatinine Ratio (7 - 25 %) 32.5 H Lactic Acid (0.7 - 2.1 mmol/L) 1.4 Creatine Kinase (55 - 170 U/L) 5133 H Troponin I Cancelled Hematology CBC w Diff MAN DIFF ORDERED WBC (4.8 - 10.8 /CUMM) 24.3 H Hgb (14.0 - 18.0 G/DL) 12.0 L Hct (42 - 52 %) 36.0 L RDW (11.5 - 14.5 %) 14.3 Plt Count (130 - 400 /CUMM) 219 MPV (7.4 - 10.4 FL) 8.2 Segmented Neutrophils (42.2 - 75.2 %) 79 H Lymphocytes (20.5 - 51.1 %) 18 L Monocytes (1.7 - 9.3 %) 3 Platelet Estimate (ADEQUATE) ADEQUATE Normochromic RBCs VERIFIED Anisocytosis 1+ Urines Urinalysis LIGHT H Urine Color (YEL,AMB,STR) YEL Urine Clarity (CLEAR) CLEAR Urine pH (5.0 - 8.0) 5.5 Ur Specific [place] (1.001 - 1.035) 1.020 Urine Protein (NEG,<30 MG/DL) 30 H Urine Ketones (NEG) 15 H Urine Nitrite (NEG) NEG Urine Bilirubin (NEG) NEG@ICTO Urine Urobilinogen (0.1 - 1.0 EU/dl) 1.0 Ur Leukocyte Esterase (NEG) NEG Ur Microscopic SEDIMENT EXAMINED Urine RBC (0 - 5 /HPF) >75 H Urine WBC (0 - 2 /HPF) 3-5 H Ur Epithelial Cells (NONE,FEW) FEW Urine Bacteria (NEG/NONE) FEW H Urine Mucus (FEW,NONE) MOD H Urine Hemoglobin (NEG) LARGE H Urine Glucose (N MG/DL) NEG 04/23 04/23 04/22 0020 0020 1547 Chemistry Lactic Acid (0.7 - 2.1 mmol/L) 2.0 Troponin I (<0.11 ng/ml) 0.08 Urines Urinalysis LIGHT H Urine Color (YEL,AMB,STR) YEL Urine Clarity (CLEAR) CLEAR Urine pH (5.0 - 8.0) 5.5 Ur Specific [place] (1.001 - 1.035) >= 1.030 Urine Protein (NEG,<30 MG/DL) 100 H Urine Ketones (NEG) 15 H Urine Nitrite (NEG) NEG Urine Bilirubin (NEG) NEG Urine Urobilinogen (0.1 - 1.0 EU/dl) 0.2 Ur Leukocyte Esterase (NEG) NEG Ur Microscopic SEDIMENT EXAMINED Urine RBC (0 - 5 /HPF) 1-3 Urine WBC (0 - 2 /HPF) 1-3 H Ur Epithelial Cells (NONE,FEW) FEW Urine Bacteria (NEG/NONE) FEW H Hyaline Casts (0/LPF) FEW H Urine Mucus (FEW,NONE) FEW Urine Hemoglobin (NEG) MOD H Urine Glucose (N MG/DL) NEG 04/22 1520 Chemistry Sodium (137 - 145 mmol/L) 145 Potassium (3.5 - 5.1 mmol/L) 3.7 Chloride (98 - 107 mmol/L) 103 Carbon Dioxide (22 - 30 mmol/L) 24 Anion Gap (5 - 16) 17 H BUN (9 - 20 mg/dL) 35 H Creatinine (0.7 - 1.2 mg/dL) 1.0 Estimated GFR (>60 ml/min) > 60 BUN/Creatinine Ratio (7 - 25 %) 35.0 H Glucose (65 - 99 mg/dL) 144 H Lactic Acid (0.7 - 2.1 mmol/L) 4.2 H Calcium (8.4 - 10.2 mg/dL) 9.9 Total Bilirubin (0.2 - 1.3 mg/dL) 2.8 H Direct Bilirubin (< 0.4 mg/dL) 0.8 H AST (17 - 59 U/L) 40 ALT (21 - 72 U/L) 45 Alkaline Phosphatase (< 127 U/L) 120 Creatine Kinase (55 - 170 U/L) 893 H Troponin I (<0.11 ng/ml) 0.03 Total Protein (6.3 - 8.2 g/dL) 6.7 Albumin (3.5 - 5.0 g/dL) 4.3 Globulin (1.9 - 4.2 gm/dL) 2.4 Albumin/Globulin Ratio (1.1 - 2.2 %) 1.8 Coagulation PT (9.4 - 12.5 SEC) 13.6 H INR (0.90 - 1.17) 1.24 H APTT (25 - 37 SEC) 39 H Hematology CBC w Diff NO MAN DIFF REQ WBC (4.8 - 10.8 /CUMM) 21.3 H RBC (4.70 - 6.10 /CUMM) Hgb (14.0 - 18.0 G/DL) 13.7 L Hct (42 - 52 %) 40 L MCV (80.0 - 94.0 FL) ND MCH (27.0 - 31.0 PG) ND MCHC (33.0 - 37.0 G/DL) ND RDW (11.5 - 14.5 %) 13.7 Plt Count (130 - 400 /CUMM) 227 MPV (7.4 - 10.4 FL) 7.6 Gran % (42.2 - 75.2 %) 91.8 H Lymphocytes % (20.5 - 51.1 %) 2.0 L Monocytes % (1.7 - 9.3 %) 6.2 Eosinophils % (0 - 5 %) 0 Basophils % (0.0 - 2.0 %) 0 Absolute Granulocytes (1.4 - 6.5 /CUMM) 19.5 H Absolute Lymphocytes (1.2 - 3.4 /CUMM) 0.4 L Absolute Monocytes (0.10 - 0.60 /CUMM) 1.3 H Absolute Eosinophils (0.0 - 0.7 /CUMM) 0 Absolute Basophils (0.0 - 0.2 /CUMM) 0
[2017-04-25 14:51] VITALS: BP 128/82
[2017-04-25 22:06] VITALS: BP 140/72
[2017-04-26 06:59] VITALS: BP 136/64
--- NOTE | 2017-04-26 07:19 | PN- Housestaff ---
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 States no issues. No complaints. Review of Systems Constitutional: Reports: see HPI. Cardiovascular: Reports: no symptoms. Respiratory: Reports: no symptoms. Gastrointestinal: Reports: no symptoms. Genitourinary: Reports: no symptoms. Musculoskeletal: Reports: no symptoms. Objective Last 24 Hrs of Vital Signs/I&O Vital Signs Date Time Temp Pulse Resp B/P B/P Pulse O2 O2 Flow FiO2 Mean Ox Delivery Rate 04/26 1408 98.5 68 16 130/70 96 04/26 1347 98.3 55 18 136/64 04/26 1007 55 136/64 04/26 1007 55 136/64 04/26 0659 98.3 55 18 136/64 95 Room Air 04/25 2206 98.7 62 18 140/72 96 Room Air 04/25 2102 74 166/90 Intake & Output 04/26 1600 04/26 0800 04/26 0000 Intake Total 610 440 450 Output Total 525 Balance 610 440 -75 Intake, IV 110 200 Intake, Oral 500 240 450 Number 0 1 Bowel Movements Output, Urine 525 Patient 270 lb Weight Weight Bed scale Measurement Method Physical Exam General Appearance: Alert, Cooperative, No Acute Distress Cardiovascular: ?irregular rhythm Lungs: Clear to Auscultation, Normal Air Movement Abdomen: Normal Bowel Sounds, Soft, No Tenderness Extremities: no LE edema Vascular: 2+ radial pulses Current Medications: Current Medications Sig/Katrina Start time Last Medication Dose Route Stop Time Status Admin Albuterol Sulfate 3 ML Q6P PRN 04/23 0800 AC INH Amoxicillin/ 875 MG Q12 04/260 AC Clavulanate Potassium PO Ampicillin Sodium/ 1,500 MG Q6 04/22 2359 DC 04/26 Sulbactam Sodium IV 1316 Sodium Chloride 100 ML Ipratropium [place] 2.5 ML Q6-PRN PRN 04/23 0800 AC INH Metoprolol Tartrate 25 MG BID 04/23 2200 AC 04/26 PO 1007 Pantoprazole Sodium 40 MG DAILY 04/23 0200 AC 04/26 IV 1007 Tamsulosin HCl 0.4 MG DAILY 04/23 1000 AC 04/26 PO 1007 Last 24 Hrs of Lab/Moncho Results Last 24 Hrs of Labs/Mics: Laboratory Tests 04/26/17 0625: Anion Gap 6, Estimated GFR > 60, BUN/Creatinine Ratio 20.0, Total Bilirubin 2.7 H, Direct Bilirubin 0.9 H, AST 110 H, ALT 132 H, Alkaline Phosphatase 76, Total Protein 5.3 L, Albumin 2.9 L, CBC w Diff NO MAN DIFF REQ, RBC , MPV 8.3, Gran % 65.2, Lymphocytes % 22.3, Monocytes % 10.1 H, Eosinophils % 2.0, Basophils % 0.4, Absolute Granulocytes 6.7 H, Absolute Lymphocytes 2.3, Absolute Monocytes 1.0 H, Absolute Eosinophils 0.2, Absolute Basophils 0, Retic Count 1.14 Assessment/Plan Assessment: A: 87 yo M pmhx of alzheimers, htn, melanoma, nonhodkins lymphoma, prostate cancer, SBO, cholecystetomy presenting for weakness after a fall but also found to have coffee ground emesis vomiting Problem list: #1 acute blood loss secondary to GI bleed #2 history of CLL with leukocytosis on admission #3 history of non-Hodgkin's lymphoma. #4 rhabdomyolysis #5 aspiration pneumonitis #6 history of COPD #7 multiple lesions on kidney likely metastatic #8 syncope #9 proteinuria #10 lactic acidosis #[address] showed nondisplaced lucency courses through the left fifth anterior costochondral cartilage in the right seventh anterior costochondral cartilage suggesting age-indeterminate nondisplaced fracture through these areas. Indeterminate 1.4 cm hypodense lesion within the posterior interpolar left kidney. Nonspecific esophageal wall thickening Plan: Patient was supposed to be discharged to [facility] but [facility], [place], operated by [facility] not accepting right now -f.u with regarding dispo planning for tomorrow -GI deferring EGD for now -CPK downtrended (613 - latest) -Hem/Onc: leukocytosis related to NHL and pt [facility], likely need bone scan for osteoblastic lesions, consider biopsy vs treatment of prostate cancer (PSA 63.60), RCC - pt should f/u with oncologist and urologist, -As per Hem/Onc patient saw Dr. Tremaine Leon at [place] for CLL but leukocytosis all neutrophils that most likely reactive -Renal US did not find lesiosn found on CT. Consider CT with contrast or MRI -Anemia: monitor for hemolysis. Retic decreased 2.1 -> 1.14. Tbili 3.2 -> 2.7. CONSIDER steroids if worsening anemia -LFTs remain elevated, will cont to monitor. Problem List: 1. NHL (non-Hodgkin's lymphoma) 2. Renal cell carcinoma 3. GI bleed 4. Autoimmune hemolytic anemia, cold antibody type Pain Ratin Pain Location: none Pain Goal: Pain 4 or less Pain Plan: pain pathway Tomorrow's Labs & Rationales: no labs Josiah Pritchard 04/26/17 1354: Attending MD Review Statement Attending Statement Attending MD Statement: examined this patient, discuss w/resident/PA/CORE DRILLER HELPER, agreed w/resident/PA/CORE DRILLER HELPER, reviewed EMR data (avail), discussed with nursing, discussed with case mgmt Attending Assessment/Plan: Pt will be dced to [facility] on po agumentin for aspiration pneumonia. Pts rhabdomyolysis resolved. pt will f/u with his oncologist at [place] for prostate cancer with bony metastasis.
[2017-04-26 07:41] LABS: ABSOLUTE BASOPHIL COUNT 0 /CUMM (0.0-0.2); ABSOLUTE EOSINOPHIL COUNT 0.2 /CUMM (0.0-0.7); ABSOLUTE GRANULOCYTE CT 6.7 /CUMM (1.4-6.5); ABSOLUTE LYMPH COUNT 2.3 /CUMM (1.2-3.4); BASOPHIL % 0.4 % (0.0-2.0); MEAN PLATELET VOLUME 8.3 FL (7.4-10.4); WHITE BLOOD CELL COUNT 10.2 /CUMM (4.8-10.8)
--- NOTE | 2017-04-26 08:01 | PN- Hematology ---
Subjective Subjective: He denies any new pain. He has no fever or chills. He has no nausea or vomiting. He is eating breakfast. Review of Systems: Limited due to dementia. Review of Systems Constitutional: Denies: chills, fever. Cardiovascular: Denies: chest pain. Respiratory: Denies: short of breath. Gastrointestinal: Denies: abdominal pain. Genitourinary: Denies: dysuria. All Other Systems: Reviewed and Negative Objective Vital Signs and I&Os Vital Signs Date Time Temp Pulse Resp B/P B/P Pulse O2 O2 Flow FiO2 Mean Ox Delivery Rate 04/26 0659 98.3 55 18 136/64 95 Room Air 04/25 220 98.7 62 18 140/72 96 Room Air 04/25 2102 74 166/90 04/25 1451 98.0 54 18 128/82 99 Room Air 04/25 0919 61 128/74 04/25 0919 61 128/74 Intake & Output 04/26 0800 04/26 0000 04/25 1600 04/25 0800 04/25 0000 04/24 1600 Intake Total 440 450 620 350 200 560 Output Total 525 500 200 Balance 440 -75 620 350 -300 360 Intake, IV 200 120 250 140 Intake, Oral 240 450 500 100 200 420 Number 0 1 1 Bowel Movements Output, Urine 525 500 200 Patient 122.47 kg 122.158 kg 121.79 kg Weight Weight Bed scale Measurement Method Physical Exam: General Appearance: well developed/nourished, no apparent distress, alert, awake , comfortable, obese Neck: supple Respiratory: normal breath sounds, chest non-tender, no respiratory distress, quiet respiration Cardiovascular: regular rate/rhythm Gastrointestinal: normal bowel sounds, soft, non-tender Extremities: pedal edema Neurologic/Psych: awake, alert, oriented to place and person Cranial Nerves: normal speech Skin: diffuse keratosis, basal lesion throughout body Current Medications: Current Medications Sig/Katrina Start time Last Medication Dose Route Stop Time Status Admin Albuterol Sulfate 3 ML Q6P PRN 04/24 799 AC INH Ampicillin Sodium/ 1,500 MG Q6 04/22 235 AC 04/26 Sulbactam Sodium IV 0548 Sodium Chloride 100 ML Ipratropium [place] 2.5 ML Q6-PRN PRN 04/24 799 AC INH Metoprolol Tartrate 25 MG BID 04/23 2199 AC 04/25 PO 210 Pantoprazole Sodium 40 MG DAILY 04/23 0200 AC 04/25 IV 0920 Tamsulosin HCl 0.4 MG DAILY 04/23 1000 AC 04/25 PO 0919 Results Last 24 Hours of Lab Results: Laboratory Tests 04/26 0625 Chemistry Sodium Pending Potassium Pending Chloride Pending Carbon Dioxide Pending Anion Gap Pending BUN Pending Creatinine Pending BUN/Creatinine Ratio Pending Total Bilirubin Pending Direct Bilirubin Pending AST Pending ALT Pending Alkaline Phosphatase Pending Total Protein Pending Albumin Pending Hematology CBC w Diff Pending WBC Pending RBC Pending Hgb Pending Hct Pending MCV Pending MCH Pending MCHC Pending RDW Pending Plt Count Pending MPV Pending Gran % Pending Lymphocytes % Pending Monocytes % Pending Eosinophils % Pending Basophils % Pending Absolute Granulocytes Pending Absolute Lymphocytes Pending Absolute Monocytes Pending Absolute Eosinophils Pending Absolute Basophils Pending Retic Count Pending Assessment/Plan Hematology Assessment/Recommendations: Mr. 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 History is taken from chart review. He was admitted after a fall at home. He was found on the floor in his room. He was noted to have elevated WBC and CPK on admission. He was noted to have numerous osteoblastic lesion in the axial skeleton. He was also noted to have right renal lesion. Due to numerous findings, hematology/oncology was consulted. Patient does see an hematology/oncology physician at the [facility]. He has known RCC in the right kidney. He has known prostate cancer. He has known NHL which may be CLL. He has chronic elevation of bilirubin which fluctuates in level. Imaging on admission demonstrated diffuse osteoblastic lesions in axial skeleton. PSA is elevated. Osteoblastic lesions are likely metastatic prostate cancer. He will need bone scan or prostate specific PET scan done at [facility]. He will need to follow up with his oncologist for workup and treatment. He may need ADT. Leukocytosis is improving and can be monitored. Anemia has stabilize and may be dilutational. Leukocytosis: -likely related to NHL and follows with hematology/oncology at [facility] -monitor CBC Osteoblastic lesion: -likely need bone scan (or prostate specific PET at [facility]) -consider biopsy Prostate cancer: -[facility] -likely need bone scan -candidate for ADT RCC: -follow up with [facility] onc[facility] and his urologist Anemia: -monitor for hemolysis:LDH and bilirubin -consider steroid if worsening anemia Please call [phone] with any questions or concerns. Problem List: 1. NHL (non-Hodgkin's lymphoma) 2. Renal cell carcinoma 3. Prostate cancer genetic susceptibility 4. GI bleed 5. Rhabdomyolysis 6. Leukocytosis
[2017-04-26 09:20] LABS: HEMATOCRIT 34 % (42-52)
[2017-04-26 09:23] LABS: GRANULOCYTE % 65.2 % (42.2-75.2); PLATELET COUNT 212 /CUMM (130-400)
--- NOTE | 2017-04-26 13:44 | Patient Discharge Instructions ---
Discharge Instructions General Discharge Information Special Instructions: Please follow up with your pcp in 1-2 weeks. Please follow up with your [facility] medical driver in 1-2 weeks. Please follow up with your [facility] oncologist and urologist in 1-2 weeks. Please follow up your [facility] specialist in 1-2 weeks for possible EGD. Please take your medications as perscribed. Acute Coronary Syndrome Inclusion Criteria At DC or during hospital stay patient has or had the following: ACS DIAGNOSIS No Discharge Core Measures Meds if any: Prescribed or Continued at Discharge Meds if any: NOT Prescribed or Continued at Discharge Congestive Heart Failure Inclusion Criteria At DC or during hospital stay patient has or had the following: CHF DIAGNOSIS No Discharge Core Measures Meds if any: Prescribed or Continued at Discharge Meds if any: NOT Prescribed or Continued at Discharge Cerebrovascular accident Inclusion Criteria At DC or during hospital stay patient has or had the following: CVA/TIA Diagnosis No Discharge Core Measures Meds if any: Prescribed or Continued at Discharge Meds if any: NOT Prescribed or Continued at Discharge Venous thromboembolism Inclusion Criteria VTE Diagnosis No VTE Type NONE VTE Confirmed by (Test) NONE Discharge Core Measures - Per Current guidelines, there needs to be overlap - treatment for the first 5 days of Warfarin therapy. - If discharged on Warfarin prior to 5 days of - overlap therapy, the patient will need to be - assessed for post discharge needs including - *Post discharge parental anticoagulation - *Warfarin and/or parental anticoagulation education - *Follow up date to check INR post discharge At least 5 days overlap therapy as Inpatient No Meds if any: Prescribed or Continued at Discharge Note: Overlap Therapy is Warfarin and Anticoagulant Meds if any: NOT Prescribed or Continued at Discharge
[2017-04-26 13:47] VITALS: BP 136/64
[2017-04-26] MEDS ORDERED: METOPROLOL TART25 M1 PO ×2 (13:49→14:01)
[2017-04-26] MEDS ORDERED: PROTONIX40 M3 PO (13:58)
[2017-04-26] MEDS ORDERED: ALBUTEROL0.63 MG/1 INH/SOL (13:58)
[2017-04-26] MEDS ORDERED: AUGMENTIN 875-1 EACH PO (13:58)
[2017-04-26] MEDS ORDERED: NASAL SPRAY44 ML NAS (14:03)
[2017-04-26 14:08] VITALS: BP 130/70
--- NOTE | 2017-04-26 15:42 | Discharge Summary ---
See Addendum Visit Information Visit Dates Admission Date: 04/22/17 Discharge Date: 04/26/2017 Hospital Course Course Attending Physician: Macho BAUTISTA,Josiah Mandel Primary Care Physician: Ngoc Nelson APRN Consulting Request: 1 Consulting Specialty: Cardiology Consulting Request: 2 Consulting Specialty: Gastroenterology Consulting Request: 3 Consulting Specialty: Hematology/Oncology Hospital Course: Patient is 87 year old male with PMH of dementia, HTN, CA prostate S/P radiation , non-Hodgkin's lymphoma, S/P cholecystectomy, cold agglutinin autoimmune hemolytic anemia, renal cell CA who presented to ED after a fall. Most of the history was obtained from the patient's granddaughter on admission who reported that patient was found in prone position on the kitchen floor and coffee ground vomiting was noticed around him. Patient has frequent falls, previous one 5 months back. On admission his vitals were 97.6, pulse 107, RR 16, blood pressure 157/75, saturating 95% on room air. Labs pertinent to elevated WBC, CPK and LFT on admission. CT head and cervical spine are negative for acute intracranial pathology or cervical fracture however mild involutional changes and prominent periventricular deep white matter microangiopathic changes seen. CT abdomen, pelvis and chest with IV contrast: Innumerable sclerotic lesions throughout the imaged axial and appendicular skeleton concerning for osteoblastic metastatic disease in addition to in addition to nonspecific esophageal wall thickening with recommendation to obtain with recommendation to obtain EGD. Right kidney lesion that may reflect an angiomyolipoma or treated renal malignancy which can be correlated with the clinical history. Indeterminate 1.4 cm hypodense lesion within the posterior interpolar left kidney can be further assessed with ultrasound. Hematology/oncology consultation was obtained, PSA is elevated. 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 Leukocytosis and anemia are improving. GI consultation was obtained for hematemesis. Patient was started on PPI with recommendation for EGD however patient's daughter would like to have the EGD at the [facility] where patient usually gets his care. Patient did not have major GI bleed during his hospitalization, CBCs remained stable. Cardiology consultation was obtained for possible syncope, patient was started on metoprolol 25 mg twice a day instead of metoprolol succinate 25 daily. Blood pressure remained stable. Echocardiogram was obtained, Left ventricular ejection fraction is estimated at >65 %. "pseudonormal" filling pattern of the left ventricle for age (stage 2 diastolic dysfunction). TSH and free T4 are WNL. Patient was cleared from cardiac standpoint for discharge. Patient had leukocytosis on admission of unknown etiology, possible aspiration because of the fall, patient was started on Unysan and changed to augmentin to finish 7 days of antibiotics. Patient will be discharged to [facility] and follow up at the [facility] after discharge. Images EXAM TYPE: CAT - CT CERV SPINE WO IV CONTRAST; CT HEAD WO IV CONTRAST EXAMINATION: CT OF THE HEAD WITHOUT CONTRAST CT OF THE CERVICAL SPINE WITHOUT CONTRAST CLINICAL INFORMATION: Found unresponsive. Presumptive diagnosis of intracranial hemorrhage.. COMPARISON: None. TECHNIQUE: Contiguous axial imaging was performed from the skull base to vertex without intravenous administration of contrast. Coronal reformations of the head were obtained. Contiguous axial imaging was then performed from the skull base down to the thoracic inlet. Coronal and sagittal reformations of the cervical spine were obtained. DLP: 1004.75 mGy-cm. FINDINGS: CT scan of the head: Beam hardening artifact from dental amalgam and bony calvarium limits assessment. There is no evidence of acute intracranial hemorrhage or territorial infarction. No abnormal mass-effect or midline shift is seen. [place] to white matter differentiation is well preserved. No extra-axial fluid collections are identified. The ventricles and sulci are mildly enlarged, consistent with involutional changes. Prominent periventricular deep white matter low-attenuation is seen, consistent with ischemic small vessel disease. Calcification of the carotid siphons is seen. Prominent calcification of the cerebral falx is seen. The osseous structures and soft tissues are normal. Mucous retention cyst is seen in the left maxillary and sphenoid sinus. The mastoid air cells and visualized portions of the paranasal sinuses are well-aerated. CT scan of the cervical spine: There is a mild convex right curvature of the cervical spine. No evidence of acute fracture or dislocation. Craniocervical junction and atlantoaxial articulations are intact. Soft tissues at the level of the foramen magnum are grossly unremarkable. Prevertebral soft tissues are normal in thickness. There is advanced degenerative disc disease at the C3-C4, C4-C5, C5-C6 and C6-C7 levels with associated bulky spur formation, most prominent at the C4-C5 level. Partial fusion along the anterior cervical column is noted from the C5 level down to the upper thoracic spine. Small posterior disc osteophyte complexes are seen at all levels from C3-C4 down to the thoracic spine. Degenerative changes are seen at the atlantoaxial articulation. The included soft tissues of the neck and lung apices are unremarkable. Small calcifications in the thyroid gland are noted. IMPRESSION: CT scan of the head: No acute intracranial pathology. Mild involutional changes and prominent periventricular deep white matter microangiopathic changes seen. Mucous retention cyst in the left maxillary sinus and in the left sphenoid sinus is seen. CT scan of the cervical spine: No evidence of cervical spine fracture. Cervical dextroscoliosis with multilevel advanced degenerative disc disease throughout the mid and lower cervical spine. EXAMINATION CT CHEST, ABDOMEN, AND PELVIS WITH IV CONTRAST CLINICAL INFORMATION: Trauma. COMPARISON: Chest x-ray 07/14/2015. TECHNIQUE: A contrast-enhanced CT of the chest was obtained following the administration of 95 mL of Optiray [address] CHEST: There is no focal consolidation, pleural effusion, or pneumothorax. The thoracic aorta is normal in caliber. The heart is normal in size without evidence of a pericardial effusion. There is no mediastinal, hilar, or axillary adenopathy. Multinodular thyroid gland with coarse calcifications. Nonspecific esophageal wall thickening that can be correlated with endoscopy. No significant soft tissue findings within the chest. 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 CT ABDOMEN/PELVIS: The spleen, adrenal glands, and pancreas are normal. The gallbladder is surgically absent. Probable small cyst within the left lobe of the liver. There are parapelvic cysts bilaterally without hydronephrosis. There is a 5 mm calculus within the upper pole of the right kidney. There is a 4 cm mixed fat and soft tissue-containing lesion along the anterior margin of the right kidney that may reflect an angiomyolipoma or a treated renal lesion for which correlation with the patient's surgical history is advised. Indeterminate 1.4 cm hypodense lesion within the posterior interpolar left kidney can be further assessed with ultrasound. Scattered colonic diverticulosis without acute diverticulitis. The large and small bowel are normal in caliber without evidence of mechanical obstruction. No focal inflammatory changes adjacent to the large or the small bowel. The appendix is normal. There is no free air and there is no intra-abdominal free fluid. No mesenteric or retroperitoneal adenopathy. Aortoiliac atherosclerotic calcification. Prostatomegaly. No pelvic adenopathy. No free fluid within the pelvis. 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 Laminectomy changes at the L3-L5 levels. There is a right total hip arthroplasty. No significant soft tissue abnormality. IMPRESSION: - No evidence of hollow or solid visceral injury within the chest, abdomen, or pelvis. -Nondisplaced lucency courses through the left fifth anterior costochondral cartilage in the right seventh anterior costochondral cartilage suggesting age-indeterminate nondisplaced fracture through these areas. No displaced rib fractures. No additional fractures. 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 - Nonspecific esophageal wall thickening that can be correlated with endoscopy. - There is a 4 cm mixed fat and soft tissue-containing lesion along the anterior margin of the right kidney that may reflect an angiomyolipoma or treated renal malignancy which can be correlated with the clinical history. - Indeterminate 1.4 cm hypodense lesion within the posterior interpolar left kidney can be further assessed with ultrasound. - Multinodular thyroid gland with coarse calcifications. - Prostatomegaly. - Nonobstructing right upper pole renal calculus. EXAM TYPE: US - US-RENAL/KIDNEY EXAMINATION: US RETROPERITONEAL COMPLETE (RENAL) CLINICAL INFORMATION: History of non-Hodgkin's lymphoma. CT findings suggesting lipoma versus malignancy. COMPARISON: None. TECHNIQUE: Real-time imaging of the kidneys and bladder. Color Doppler exam was used. FINDINGS: The exam is limited by body habitus and bowel gas. Patient difficulty following breathing instructions. Patient has limited mobility. RIGHT KIDNEY: 11.9 x 6.1 x 4.7 cm (SAG x AP x TRV). The 4 cm lesion seen on the CT of the midpole right kidney is not visualized with the ultrasound. On the CAT scan is lesion does have macroscopic fat and the lesion is therefore likely blending into the surrounding perinephric fat with ultrasound. There is no abnormal vascularity on the color Doppler around the kidney. The cortex of the kidney is of normal size and echogenicity with normal cortical thickness. There is no hydronephrosis. On the CAT scan of 11/20/2006 the 4 cm renal lesion in the right kidney was not evident. LEFT KIDNEY: 13.4 x 6.3 x 5.2 cm (SAG x AP x TRV). The 1.4 cm hypodense lesion in the posterior interpolar cortex of left kidney on the CAT scan of 04/22/2017 is not visualized on ultrasound. The cortex of the kidney is of normal size and echogenicity. There is no calculi and no hydronephrosis. No abnormal vascularity on Doppler. On the CAT scan of 11/20/2006 the lesion at the interpolar area of the left kidney was a 1 cm pedunculated cyst with a density measurement of 9 Hounsfield units, a cyst. This is seen on axial image 36 (2). This suggests that the lesion on the current CAT scan of 04/22/2017 is a complex cyst. BLADDER: Well distended and normal. Bilateral ureteral jets are demonstrated. Prevoid bladder volume is 218 mL. Patient was unable to void. IMPRESSION: The lesion seen on the CAT scan of 04/22/2017 involving the right and left kidney are not visualized on this ultrasound study. On this ultrasound renal exam there is no abnormal mass or hydronephrosis or calculus. The renal lesions seen on prior CT study could be further assessed with a followup pre and postcontrast CT study of kidneys or MRI. EXAM TYPE: CARD - ECHO (COMPLETE) W/CONTRAST BRADYCLUADIA CASS Age: 87 : 1930 Gender: M Exam Date: 04/24/2017 11:16 Exam Location: [place] Ht (in): 72 Wt (lb): 268 BSA: 2.53 BP: 128 / 74 Ordering Physician: Lillie Pike MD Referring Physician: Lillie Pike MD Technologist: Julio Cesar Brower [facility] Room Number: 185-1 Indications: LIGHTHEADEDNESS Rhythm: Sinus Technical Quality: Fair FINDINGS Left Ventricle Normal global left ventricular size, wall thickness, systolic function with no obvious regional wall motion abnormalities. Left ventricular ejection fraction is estimated at >65 %. "pseudonormal" filling pattern of the left ventricle for age (stage 2 diastolic dysfunction). Right Ventricle The right ventricle is normal in size and function. Right Atrium The right atrium is normal in size. Left Atrium Mild left atrial dilatation. The interatrial septum is intact. Mitral Valve The mitral valve is normal in structure and function. There is no mitral regurgitation. Aortic Valve Diffuse thickening of the aortic valve cusps with mildly reduced excursion. No aortic stenosis. No aortic regurgitation. Tricuspid Valve Tricuspid valve is normal in structure and function. Trace tricuspid regurgitation. Right ventricular systolic pressure estimated to be elevated at 40-45 mmHg. Pulmonic Valve Pulmonic valve not well visualized, grossly normal. No pulmonic regurgitation. Pericardium Normal pericardium without effusion. No pleural effusion. Great Vessels Normal aortic root dimension. Mildly dilated ascending aorta. The aortic arch and great vessels are not well seen. CONCLUSIONS Normal global left ventricular size, wall thickness, systolic function with no obvious regional wall motion abnormalities. Left ventricular ejection fraction is estimated at >65 %. "pseudonormal" filling pattern of the left ventricle for age (stage 2 diastolic dysfunction). Mild left atrial dilatation. Diffuse thickening of the aortic valve cusps with mildly reduced excursion. No aortic stenosis. The mitral valve is normal in structure and function. Right ventricular systolic pressure estimated to be elevated at 40- 45 mmHg. Mildly dilated ascending aorta. The aortic arch and great vessels are not well seen. Bennie Veronica M.D. (Electronically Signed) Final Date: 24 April 2017 18:05 MEASUREMENTS (Male / Female) Normal Values 2D ECHO LV Diastolic Diameter PLAX 6.4 cm 4.2 - 5.9 / 3.9 - 5.3 cm LV Systolic Diameter PLAX 3.1 cm 2.1 - 4.0 cm LV Fractional Shortening PLAX 51.6 % 25 - 46 % LV Ejection Fraction 2D Teich 81.8 % IVS Diastolic Thickness 1.0 cm LVPW Diastolic Thickness 1.0 cm LV Relative Wall Thickness 0.3 RV Internal Dim ED PLAX 3.6 cm 1.9 - 3.8 cm LVOT Diameter 2.2 cm Aortic Root Diameter 3.3 cm LA Systolic Diameter LX 4.6 cm 3.0 - 4.0 / 2.7 - 3.8 cm Ascending Aorta Diameter 3.8 cm DOPPLER AV Peak Velocity 156.0 cm/s AV Peak Gradient 9.7 mmHg AV Mean Velocity 110.0 cm/s AV Mean Gradient 5.0 mmHg AV Velocity Time Integral 40.4 cm LVOT Peak Velocity 100.0 cm/s LVOT Peak Gradient 4.0 mmHg LVOT Mean Velocity 55.2 cm/s LVOT Mean Gradient 2.0 mmHg LVOT Velocity Time Integral 22.3 cm LVOT Stroke Volume 84.8 cm AV Area Cont Eq vti 2.1 cm AV Area Cont Eq pk 2.4 cm MV Peak Velocity 101.0 cm/s MV Peak Gradient 4.1 mmHg MV Mean Velocity 51.2 cm/s MV Mean Gradient 1.0 mmHg Mitral E Point Velocity 115.0 cm/s Mitral A Point Velocity 57.3 cm/s Mitral E to A Ratio 2.0 MV PHT Velocity 109.0 cm/s MV Deceleration Meagher 315.0 cm/s MV Pressure Half Time 103.8 ms MV Area PHT 2.1 cm MV Deceleration Time 229.0 ms TR Peak Velocity 300.0 cm/s TR Peak Gradient 36.0 mmHg Right Atrial Pressure 10.0 mmHg Pulmonary Artery Systolic Pressu 46.0 mmHg Right Ventricular Systolic Press 46.0 mmHg PV Peak Velocity 102.0 cm/s PV Peak Gradient 4.2 mmHg PV Mean Velocity 79.5 cm/s PV Mean Gradient 3.0 mmHg PV Velocity Time Integral 26.8 cm DICTATED BY: Glenys BAUTISTA,Bennie Lo DATE/TIME DICTATED:04/24/171805 WAREHOUSE SPECIALIST:[place] DATE/TIME TRANSCRIBED:04/24/171805 Allergies: Coded Allergies: NO KNOWN ALLERGIES (10/21/14) Disposition Summary Disposition Principal Diagnosis: # Syncope # Fall Additional Diagnosis: # Aspiration pneumonia # Rhabdomyolysis Discharge Disposition: SNF Discharge Instructions General Discharge Information Code Status: Do Not Resucitate/Intubat Patient's Diet: Heart healthy diet Patient's Activity: As tolerated Follow-Up Instructions/Appts: Please follow up with your pcp in 1-2 weeks. Please follow [facility] with [facility] 1-2 weeks. Please follow up with your [facility] oncologist and urologist in 1-2 weeks. Please [facility] in 1-2 weeks for possible EGD. Please take your medications as perscribed. Medications at Discharge Discharge Medications: Stop taking the following medications: Aspirin (Ecotrin*) 81 MG TABLET.DR ORAL DAILY Metoprolol Succ XL (Toprol Xl) 50 MG TAB ORAL DAILY Lisinopril (Prinivil) 5 MG TABLET ORAL DAILY Continue taking these medications: Tamsulosin HCl (Flomax) 0.4 MG CAP.ER.24H 1 Capsule ORAL DAILY Comments: Last Taken: 04/26/17 Time: 10:00 AM Folic Acid (Folic Acid) (Unknown Strength) CAPSULE Unknown Dose ORAL DAILY Comments: NOT GIVEN IN HOSPITAL Cyanocobalamin (Vitamin B-12) (Unknown Strength) TABLET Unknown Dose ORAL DAILY Comments: NOT GIVEN IN HOSPITAL Nystatin (Nyamyc) (Unknown Strength) POWDER Unknown Dose On the skin As Directed Comments: NOT GIVEN IN HOSPITAL Sodium Chloride (Nasal Adena) 0.65 % SPRAY 2 Adena In the nose EVERY SIX HOURS as needed for nasal congestion Comments: NOT GIVEN IN HOSPITAL Start taking the following new medications: Amoxicillin/Potassium Clav (Augmentin 875-125 Tablet) 875 MG-125 MG TABLET 1 Tablet ORAL TWICE DAILY Qty = 7 No Refills Comments: NOT GIVEN IN HOSPITAL Pantoprazole Sodium (Protonix) 40 MG TABLET.DR 1 Tablet ORAL DAILY Qty = 30 No Refills Comments: Last Taken: 04/26/17 Time: 10:00 AM IV GIVEN TODAY Albuterol Sulfate (Albuterol Sulfate) 0.63 MG/3 ML VIAL.NEB 1 Vial Inhale Solution 4 TIMES A DAY as needed for sob Qty = 150 No Refills Comments: NOT GIVEN IN HOSPITAL Metoprolol Tartrate (Metoprolol Tartrate) 25 MG TABLET 1 Tablet ORAL TWICE DAILY Qty = 60 No Refills Comments: Last Taken: 04/26/17 Time: 10:00 AM Copies To: Merline BAUTISTA,Ziyad; Raz Veronica MD; Glenys BAUTISTA,Bennie Lo
[2017-04-26 22:37] VITALS: BP 110/62
[2017-04-27 07:00] VITALS: BP 120/60
--- NOTE | 2017-04-27 07:19 | PN- Housestaff ---
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 States he slept ok. Complains of R hand finger numbness which is chronic. Review of Systems Constitutional: Reports: see HPI. Musculoskeletal: Reports: see HPI. Neurological/Psychological: Reports: see HPI. Objective Last 24 Hrs of Vital Signs/I&O Vital Signs Date Time Temp Pulse Resp B/P B/P Pulse O2 O2 Flow FiO2 Mean Ox Delivery Rate 04/27 1516 98.3 55 18 136/64 04/27 1353 97.3 64 17 122/70 97 04/27 0839 76 132/54 04/27 0839 76 132/54 04/27 0837 132/54 04/27 0800 Room Air 04/27 0700 98.8 76 20 120/60 96 Room Air 04/26 2305 79 110/62 04/26 2237 98.5 79 18 110/62 94 Intake & Output 04/27 1600 04/27 0800 04/27 0000 Intake Total 900 240 200 Output Total Balance 900 240 200 Intake, Oral 900 240 200 Number 1 0 Bowel Movements Patient 271 lb Weight Weight Bed scale Measurement Method Physical Exam General Appearance: Alert, Cooperative, No Acute Distress Cardiovascular: skipped beats Lungs: Clear to Auscultation, Normal Air Movement Abdomen: Normal Bowel Sounds, Soft, No Tenderness Extremities: 2+ LE edema Vascular: 2+ radial pulses Current Medications: Current Medications Sig/Katrina Start time Last Medication Dose Route Stop Time Status Admin Albuterol Sulfate 3 ML Q6P PRN 04/23 08 DCD INH Amoxicillin/ 875 MG Q12 04/260 DCD 04/27 Clavulanate Potassium PO 0839 Ipratropium [place] 2.5 ML Q6-PRN PRN 04/23 08 DCD INH Metoprolol Tartrate 25 MG BID 04/23 2199 DCD 04/27 PO 0839 Pantoprazole Sodium 40 MG DAILY 04/23 0200 DCD 04/26 IV 1007 Tamsulosin HCl 0.4 MG DAILY 04/23 1000 DCD 04/27 PO 0839 Assessment/Plan Assessment: A: 87 yo M pmhx of alzheimers, htn, melanoma, nonhodkins lymphoma, prostate cancer, SBO, cholecystetomy presenting for weakness after a fall but also found to have coffee ground emesis vomiting Problem list: #1 acute blood loss secondary to GI bleed #2 history of CLL with leukocytosis on admission #3 history of non-Hodgkin's lymphoma. #4 rhabdomyolysis #5 aspiration pneumonitis #6 history of COPD #7 multiple lesions on kidney likely metastatic #8 syncope #9 proteinuria #10 lactic acidosis #[address] showed nondisplaced lucency courses through the left fifth anterior costochondral cartilage in the right seventh anterior costochondral cartilage suggesting age-indeterminate nondisplaced fracture through these areas. Indeterminate 1.4 cm hypodense lesion within the posterior interpolar left kidney. Nonspecific esophageal wall thickening Plan: Patient being discharge to [facility] today -GI deferring EGD for now -CPK downtrended (613 - latest) -Hem/Onc: leukocytosis related to NHL and pt should f/u with [place] oncologist, likely need bone scan for osteoblastic lesions, consider biopsy vs treatment of prostate cancer (PSA 63.60), RCC - pt should f/u with oncologist and urologist, -As per Hem/Onc patient saw Dr. Tremaine Leon at [place] for CLL but leukocytosis all neutrophils that most likely reactive -Renal US did not find lesiosn found on CT. Consider CT with contrast or MRI -Anemia: monitor for hemolysis. Retic decreased 2.1 -> 1.14. Tbili 3.2 -> 2.7. CONSIDER steroids if worsening anemia -LFTs remain elevated, will cont to monitor. Problem List: 1. NHL (non-Hodgkin's lymphoma) 2. Renal cell carcinoma 3. Prostate cancer genetic susceptibility 4. GI bleed 5. Rhabdomyolysis 6. Syncope Pain Ratin Pain Location: none Pain Goal: Remain pain free Pain Plan: pain pathway Tomorrow's Labs & Rationales: none Consulting Request: Consulting Specialty: Hematology/Oncology Josiah Pritchard 04/27/17 1448: Attending MD Review Statement Attending Statement Attending MD Statement: examined this patient, discuss w/resident/PA/CORE BLOWER OPERATOR, agreed w/resident/PA/CORE BLOWER OPERATOR, reviewed EMR data (avail), discussed with nursing, discussed with case mgmt Attending Assessment/Plan: Possible dc to [facility] if bed becomes available. d/w case management. Pt stable from med standpoint for dc . Rhabdomyolysis resolved. Cont on current abx for aspiration pneumonia.
[2017-04-27 08:37] VITALS: BP 132/54
[2017-04-27] MEDS ORDERED: PRINIVIL5 M1 PO (11:49)
[2017-04-27] MEDS ORDERED: ASPIRIN EC81 M1 PO (11:49)
[2017-04-27] MEDS ORDERED: TOPROL XL50 M1 PO (11:50)
[2017-04-27 13:53] VITALS: BP 122/70
[2017-04-27 15:16] VITALS: BP 136/64
== END 2017-04-27 16:20 | DRG 564 ==
LOC: DELPENDDIS → ERH 14:51 → ERHI 19:23 → 1NO 19:23 → ENRESERV 19:42 → ENTRNSPT 21:35 → EDTRNSPTSTS 21:42 → 1NO 21:59 → CMPTRNSPT 22:02 → 1NO 04-24 10:31 → ENPENDDIS 04-26 14:24 → 1NO 04-27 16:20
PROVIDERS: Emergency Medicine; Hospitalist; Internal Medicine Adolescent Medicine; Internal Medicine Endocrinology, Diabetes & Metabolism; Student in an Organized Health Care Education/Training Program
DX: T79.6XXA Traumatic ischemia of muscle, initial encounter (principal); J69.0 Pneumonitis due to inhalation of food and vomit; K92.0 Hematemesis; C79.51 Secondary malignant neoplasm of bone; E87.2 Acidosis; C85.90 Non-Hodgkin lymphoma, unspecified, unspecified site; R13.10 Dysphagia, unspecified; D58.9 Hereditary hemolytic anemia, unspecified; D62 Acute posthemorrhagic anemia; E86.0 Dehydration; G30.9 Alzheimer's disease, unspecified; F02.80 Dementia in other diseases classified elsewhere, unspecified severity, without behavioral disturbance, psychotic disturbance, mood disturbance, and anxiety; W19.XXXA Unspecified fall, initial encounter; Z91.81 History of falling; I10 Essential (primary) hypertension; D72.829 Elevated white blood cell count, unspecified; E80.6 Other disorders of bilirubin metabolism; R55 Syncope and collapse; Z85.820 Personal history of malignant melanoma of skin; Z85.46 Personal history of malignant neoplasm of prostate; E04.2 Nontoxic multinodular goiter; N20.0 Calculus of kidney; Z66 Do not resuscitate
CPT/HCPCS: 1NSP; 36415; 36592; 74177; 76775; 81001; 82436; 86920; 87040; 87086; 93005; 93010; 97110-GO; 97116-GO; 97161-GP; 97530-GO; C8929; J1650; Q9957